=== PATIENT | female | born 1930 | race Caucasian/White ===

== ENCOUNTER 2019-04-21 12:12 | Inpatient (IN) | payer OTHER ==
[~2019-04-21] VITALS: Ht 165.1 cm; Wt 65.3 kg
[~2019-04-21 12:12] MED LIST: ALENDRONATE SOD35 M2 PO; ALENDRONATE SOD70 M1 PO; ALENDRONATE SOD70 M2 PO; ALENDRONATE SOD70 M3 PO; AMLODIPINE BESYL5 M1 PO; AMLODIPINE10 M1 PO; ANTIVERT12.5 MG PO; ARI10 PO; ARICEPT ODT10 MG PO; ARICEPT5 MG PO; ASPI-COR81 M3 PO; ASPIR 8181 MG PO; ATI0.5 PO; ATORVASTATIN CA10 M1 PO; CALCIUM 500500 M2 PO; CALCIUM CITRATE1 TA1 PO; CALCIUM MAG; CHEWABLE ASPIRI81 MG PO; CIPRO500 MG PO; CLOPIDOGREL75 M1 PO; CLOPIDOGREL75 MG PO; COL250 PO; COLACE100 MG PO; CRANBERRY CONC500 MG PO; D3-5050000 IU PO; DEP250 PO; DEPAKOTE ER250 M1 PO; DEPAKOTE250 MG PO; DIO80 PO; DIOVAN80 MG PO; DIPHENOX/ATROPI1 TAB PO; ESOMEPRAZOLE PO; FERROUS SULFAT325 M2 PO; GEODON40 MG PO; GLU500 PO; GOOD SENSE ASPI81 M3 PO; HYDRALAZINE HCL25 MG PO; HYDRALAZINE PO; HYDROCHLOROTH12.5 M2 PO; HYDROCHLOROTH12.5 MG PO; LAC PO; LIPI10 PO; MAG PO; MELOXICAM15 M1 PO; METOPROLOL PO; METOPROLOL TART25 M1 PO; MISOPROST200 MCG PO; MOBIC PO; NAMENDA XR7 MG PO; NAMENDA10 M2 PO; NAMENDA10 M3 PO; NEXIUM PO; NEXIUM40 MG PO; NITROFURANTOIN100 MG PO; NITROSTAT0.4 MG SL; OLANZAPINE2.5 MG PO; OMEPRAZOLE40 M1 PO; ONE DAILY MAXIM1 TAB PO; OYSTER CALCIUM1 TAB PO; OYSTER SHELL C500 M3 PO; OYSTERCAL 500500 MG PO; PREMARIN V0.625 MG/G VG; PROAIR HFA0.09 MG/A1 INH; PROTONIX20 MG PO; SERTRALINE HYD100 MG PO; SERTRALINE100 M1 PO; SERTRALINE100 MG PO; SIMVASTATIN40 MG PO; TRAMADOL50 M1 PO; TRE400 PO; ULT50 PO; VAN1PM IV; VESICARE PO; VESICARE5 M1 PO; VITAMIN D32000 I2 PO; VITD PO; ZES20 PO; ZES5 PO; ZESTRIL20 MG PO; ZINC; ZOC20 PO; ZOL100 PO; ZOS3PM IV; [UNRECOGNIZED DRUG - OTHER] PO
[2019-04-21 12:43] VITALS: Ht 165.1 cm; Wt 65.3 kg
[2019-04-21 13:05] LABS: BASOPHIL % 0.1 % (0-2); PLATELET COUNT 243 x10^3mcL (130-400)
[2019-04-21 13:07] LABS: RED CELL DISTRIBUTION WIDTH 15.6 % (11.5-14.5)
[2019-04-21 13:29] LABS: ALKALINE PHOSPHATASE 49 U/L (46-116); ALT/SGPT 28 U/L (14-59); AST/SGOT 10 U/L (15-37); BILIRUBIN TOTAL 0.2 mg/dL (0.20-1.00); CALCIUM 9.6 mg/dL (8.5-10.1); CARBON DIOXIDE 14.7 mmol/L (21-32); CHLORIDE SERUM 111 mmol/L (98-107); CREATININE SERUM 1.6 mg/dL (0.6-1.0); GLUCOSE SERUM 243 mg/dL (74-106); SODIUM SERUM 138 mmol/L (136-145); TOTAL PROTEIN, SERUM 6.5 g/dL (6.4-8.2)
[2019-04-21 13:30] LABS: T4(THYROXINE) 3.7 ug/dL (4.7-13.3)
[2019-04-21 13:32] LABS: POTASSIUM SERUM 6.8 mmol/L (3.5-5.1)
--- NOTE | 2019-04-21 13:55 | NUR ---
PATIENT PRESENTS TO ED AFTER BEING TOLD THAT SHE HAD ABNORMAL LABS. ARRIVED AT BEDSIDE WITH FAMILY PRESENT. PER FAMILY, PATIENT HAS BEEN LIVING IN [facility]. FAMILY STS PATIENT HAD A CASE OF BED BUGS BITES AND RAYGOZA ARE SEEN THROUGHOUT HER BODY. LEFT SACRAL HAS A SKIN TEAR PRESENT. PILLOW PROVIDED TO LEAVE PRESSURE ON THE SKIN TEAR. PICTURE TAKEN. DR. HUTCHINSON AT BEDSIDE PERFORMING MSE.
[2019-04-21 14:55] LABS: microscopic required? NO
[2019-04-21 15:05] LABS: urine erythrocyte NEGATIVE (NEGATIVE)
[2019-04-21 15:14] LABS: LIPASE 849 IU/L (73-393); MAGNESIUM 1.2 mg/dL (1.8-2.4)
[2019-04-21 15:14] LABS: AMPHETAMINE QUAL UR NONE DETECTED (See below)
[2019-04-21 15:21] LABS: CHOLESTEROL 92 mg/dL (<200); HDL CHOLESTEROL 27 mg/dL (40-60)
[2019-04-21 15:22] LABS: CALCIUM 9.7 mg/dL (8.5-10.1)
--- NOTE | 2019-04-21 15:47 | NUR ---
PATIENT RESTING AT BEDSIDE IN NAD
--- NOTE | 2019-04-21 15:48 | NUR ---
REPORT OFF TO REHANA GUZMAN
[2019-04-21] MEDS ORDERED: METFORMIN500 M1 PO (16:08)
[2019-04-21] MEDS ORDERED: GOOD NEIGH1200 MG/15 PO (16:09)
[2019-04-21] MEDS ORDERED: NITROSTAT0.4 MG SL (16:09)
[2019-04-21] MEDS ORDERED: PERCOCET1 TA5 PO (16:10)
[2019-04-21] MEDS ORDERED: OYSTER SHELL 51 EAC1 PO (16:10)
[2019-04-21] MEDS ORDERED: PLAVIX75 M1 PO (16:10)
--- NOTE | 2019-04-21 16:10 | NUR ---
RECEIVED PT VIA SilentiumERNEY FROM E/D, ACCOMPANIED BY RN, TRANSPORTER, AND PT'S GRANDDAUGHTER, RUBIO RAMOS. PT A/A/O X 2 (PERSON/PLACE), CALM, COOPERATIVE; JENA. ON TELE # 4, HR 91, SR W/ ELEVATED T-WAVES, DENIES CHEST PAIN OR DISCOMFORT AT THIS TIME. NO ACUTE RESPIRATORY DISTRESS NOTED. ABD SOFT, ROUND, NON-TENDER, NORMOACTIVE BOWEL SOUNDS X 4 QUADS, LAST BM 04/21/19, FORMED BLACK STOOL, INCONTINENT OF BOWEL AND BLADDER. GENERALIZED WEAKNESS, USES W/C @ [employer] [place], FALL RISK PROTOCOL IN PLACE. GENERALIZED DRYNESS, RASH/SCABS AND ECCHYMOSIS OF VARYING STAGES, SIZES AND SHAPES; P/U TO RIGHT SIDE OF COCCYX, COVERED W/ OPTIFOAM; LALM IN PLACE FOR SKIN MANAGEMENT. IV SITE RAC 20G, CDI. ORIENTED PT AND GRANDDAUGHTER TO ROOM, BED CONTROLS, CALL LIGHT SYSTEM. SIDE RAILS UP X 2, BED IN LOW POSITION. PT ON CONTACT ISOLATION FOR HX MRSA NARES. WILL ENDORSE TO THOMAS KIMBALL.
[2019-04-21] MEDS ORDERED: SUNMARK PAIN R325 MG PO (16:11)
[2019-04-21] MEDS ORDERED: ALENDRONATE SOD70 M3 PO (16:11)
[2019-04-21] MEDS ORDERED: FERROUS SULFAT325 M2 PO (16:12)
[2019-04-21] MEDS ORDERED: ARICEPT10 MG PO (16:12)
[2019-04-21] MEDS ORDERED: ASPIR LOW81 MG PO (16:12)
[2019-04-21] MEDS ORDERED: FISH OIL1000 MG PO (16:12)
[2019-04-21] MEDS ORDERED: DIT5 (16:12)
[2019-04-21] MEDS ORDERED: LIPI20 PO (16:13)
[2019-04-21] MEDS ORDERED: MELOXICAM7.5 M1 PO (16:13)
[2019-04-21] MEDS ORDERED: HYDRALAZINE HCL25 MG PO (16:13)
[2019-04-21] MEDS ORDERED: MASON NATURAL1000 IU PO (16:13)
[2019-04-21] MEDS ORDERED: GABAPENTIN100 M2 PO (16:13)
[2019-04-21] MEDS ORDERED: XEROFORM PETRO1 EAC4 TP (16:14)
[2019-04-21] MEDS ORDERED: VOLTAREN-XR100 MG (16:14)
[2019-04-21 17:04] VITALS: BP 112/45
--- NOTE | 2019-04-21 17:50 | NUR ---
DR ROY AT BEDSIDE REVIEWING POC WITH PATIENT AND PATIENT FAMILY AT THIS TIME. ALL QUESTIONS AND CONCERNS ADDRESSED. ALL NEEDS ATTENDED TO. WILL CONTINUE TO MONITOR
[2019-04-21 17:57] VITALS: BP 124/48
--- NOTE | 2019-04-21 18:50 | NUR ---
PATIENT RESTING COMFORTABLY IN BED AT THIS TIME. NO APPARENT DISTRESS OR DISCOMFORT NOTED. IV PATENT AND INTACT. FAMILY AT BEDSIDE. ALL QUESTIONS AND CONCERNS ADDRESSED. ALL NEEDS ATTENDED TO. SAFETY PRECAUTIONS MAINTAINED. WILL ENDORSE ALL CARE TO AUDIT CONTROL CLERK NURSE
--- NOTE | 2019-04-21 18:58 | NUR ---
PATIENT HAS SODIUM BICARBONATE DUE AT 1830. BAG NOT IN PYXIS. CALLED DOWN TO PHARMACY, PER PHARMACY THEY WILL BRING UP THE BAG. AWAITING IV FLUID AT THIS TIME. WILL ENDORSE TO HOSPITAL ORDERLY NURSE
--- NOTE | 2019-04-21 19:30 | NUR ---
RECEIVED PT LAYING IN BED, NO ACUTE DISTRESS, DENIES PAIN OR DISCOMFORT, DAUGHTER AT BEDSIDE. AA/OX2, PERSON AND PLACE, SPEECH SLOW AND APPROPRIATE, ABLE TO MAKE NEEDS KNOWN, HX OF DEMENTIA. NSR WITH ELEVATED TO WAVES TO TELE #4, HR 77, DENIES CP OR PRESSURE. PULSES PRESENT AND EQUAL THROUGHOUT, NO EDEMA. BREATHING ON RA, EVEN AND UNLABORED, NO SOB OR DYSPNEA OBSERVED, LUNGS CTA. ABD ROUND AND SOFT WITH ACTIVE BOWEL SOUNDS, NO N/V/D. INCONTINENT OF STOOL AND URINE, WILL PROVIDE PERICARE NEEDED. GENERALIZED WEAKNESS, WHEELCHAIR BOUND AT BASELINE, FALL PRECAUTIONS IN PLACE, TURN Q2H. GENERALIZED ECCHYMOSIS AND RASHES TO BODY WITH TENTING AND DRY SKIN, PENDING SCABIES SKIN SCRAPING RESULTS. BLANCHABLE REDNESS TO COCCYZ, OPTIFOAM IN PLACE, CDI. IV TO RAC IN PLACE, DRY, PATENT, INTACT, S/L, NO PAIN, REDNESS OR SWELLING WHEN FLUSHED WITH NS. COMFORT AND SAFETY MEASURES IN PLACE. BED IN LOWEST POSITION WITH SIDE RAILS UPX2 AND BED ALARM ACTIVATED. CALL LIGHT WITHIN REACH. WILL CONTINUE TO MONITOR
[2019-04-21 20:12] VITALS: BP 134/53
--- NOTE | 2019-04-22 00:50 | NUR ---
SPOKE WITH DR. LOOMIS REGARDING PT'S MG LEVEL 1.2 NEW ORDERS FOR 4 GM MG RIDER IV AND US RENAL WITH BLADDER IN AM. WILL INPUT.
--- NOTE | 2019-04-22 01:30 | NUR ---
NO ACUTE DISTRESS OBSERVED AT THIS TIME, PT LAYING IN BED, BREATHING EVEN AND UNLABORED, EASILY AROUSABLE TO VERBAL STIMULI. PT DENIES DISCOMFORT AT THIS TIME. MG RIDER INITIATED ORDERED, INFUSING WELL. COMFORT AND SAFETY MEASURES IN PLACE. ALL NEEDS ASSESSED AND ATTENDED TO. CALL LIGHT WITHIN REACH. WILL CONTINUE TO MONITOR
--- NOTE | 2019-04-22 02:00 | NUR ---
PT OBSERVED SCRATCHING BUE AND BOTH HANDS. ENCOURAGED PT TO NOT SCRATCH, BUT CONTINUES TO DO SO. PT NEEDS CONSTANT REDIRECTION DUE TO CONFUSION AND FORGETFULNESS.
--- NOTE | 2019-04-22 03:00 | NUR ---
BAG #2 OF ORDERED MG RIDER STARTED, INFUSING WELL. PT CONFUSED AT THIS TIME, STATING SHE WANTS TO GET UP AND GET READY TO GO TO DENOMINATIONAL. PT REORIENTED, REMAINS CONFUSED. BED ALARM ACTIVATED. WILL CONTINUE TO MONITOR
--- NOTE | 2019-04-22 05:29 | NUR ---
PT OBSERVED TO SCRATCHING AND ITCHINESS, PRN ATARAX GIVEN PER EMAR.
--- NOTE | 2019-04-22 06:30 | NUR ---
NO SIGNIFICANT CHANGES TO REPORT, PT COMPLIED WITH NURSING CARE THROUGHOUT THE SHIFT, PERIODS OF CONFUSION AND FORGETFULNESS. NO ACUTE DISTRESS OBSERVED AT THIS TIME. PT LAYING IN BED, BREATHING EVEN AND UNLABORED. COMFORT AND SAFETY MEASURES MAINTAINED. ALL NEEDS ASSESSED AND ATTENDED. BED IN LOWEST POSITION WITH SIDE RAILS UPX2 AND BED ALARM ACTIVATED. CALL LIGHT WITHIN REACH. WILL CONTINUE TO MONITOR AND ENDORSE CARE TO DAY SHIFT NURSE
[2019-04-22 06:38] VITALS: BP 124/44
[2019-04-22 06:49] LABS: PLATELET COUNT 232 x10^3mcL (130-400)
[2019-04-22 07:02] LABS: ALKALINE PHOSPHATASE 46 U/L (46-116); ALT/SGPT 22 U/L (14-59); AST/SGOT 16 U/L (15-37); BILIRUBIN TOTAL 0.2 mg/dL (0.20-1.00); CALCIUM 10.8 mg/dL (8.5-10.1); CARBON DIOXIDE 17.3 mmol/L (21-32); CHLORIDE SERUM 107 mmol/L (98-107); CREATININE SERUM 1.3 mg/dL (0.6-1.0); GLUCOSE SERUM 123 mg/dL (74-106); MAGNESIUM 2.3 mg/dL (1.8-2.4); PHOSPHOROUS 3.3 mg/dL (2.5-4.9); SODIUM SERUM 135 mmol/L (136-145); TOTAL PROTEIN, SERUM 6.2 g/dL (6.4-8.2)
[2019-04-22 07:04] LABS: BASOPHIL % 0 % (0-2); RED CELL DISTRIBUTION WIDTH 14.6 % (11.5-14.5)
--- NOTE | 2019-04-22 07:35 | NUR ---
PATIENT IS AWAKE, RESTING IN BED. NO ACUTE DISTRESS NOTED AT THIS TIME. PATIENT DENIES PAIN. PATIENT IS A/O X2 (PERSON, PLACE), CONFUSED AT TIME. PATIENT ABLE TO MAKE NEEDS KNOWN. TELE MONITOR IN PLACE. GENERALIZED WEAKNESS NOTED, PATIENT ON AIR MATRESS. NA BICARB INFUSING TO RAC AT 100 ML/HR, IV SITE CDI&PATENT, NO S/S OF INFILTRATION. CALL LIGHT WITHIN REACH, BED IN LOW POSITION, WILL CONTINUE TO MONITOR PATIENT.
[2019-04-22 07:51] LABS: ALBUMIN 2.9 g/dL (3.4-5.0); POTASSIUM SERUM 6.9 mmol/L (3.5-5.1)
--- NOTE | 2019-04-22 08:00 | NUR ---
RECEIVED CRITICAL LAB OF K 6.9 FROM LAB, DR ROY PAGED AT THIS TIME. WILL FOLLOW UP WITH DR. ROY AND CONTINUE TO MONITOR PATIENT.
[2019-04-22 08:12] VITALS: BP 138/45
--- NOTE | 2019-04-22 09:08 | NUR ---
US TECH AT BEDSIDE.
--- NOTE | 2019-04-22 09:21 | NUR ---
DR ROY AWARE PATIENTS WBCS INCREASED TO 13.0, LIPASE INCREASED TO 1254, AND K INCREASED TO 6.9. DR ROY GAVE TELEPHONE ORDER/READBACK FOR KAYEXALATE 30GM PO ONCE, AND SODIUM BICARB IV 50MEQ ONCE. WILL CARRY OUT ORDERS AT THIS TIME.
--- NOTE | 2019-04-22 10:35 | NUR ---
SODIUM BICARB 50 MEQ GIVEN OVER 5 MIN AT THIS TIME. ALL NEEDS MET. WILL CONTINUE TO MONITOR PATIENT.
--- NOTE | 2019-04-22 12:25 | NUR ---
OBSERVED PATIENT SCRATCHING BUE & CHEST, ENCOURAGE PATIENT NOT TO DO SO AND APPLIED LOTION ALL OVER FOR COMFORT. PATIENT APPEARS CONFUSED AND NEEDS CONTINOUS REINFORCEMENT. WILL CONTINUE TO MONITOR PATIENT.
[2019-04-22 13:10] VITALS: BP 126/49
--- NOTE | 2019-04-22 13:40 | NUR ---
RECEIVED CRITCAL VALUE OF K: 5.8. DR ROY MADE AWARE K DECREASED. NO NEW ORDERS AT THIS TIME, WILL CONTINUE TO MONITOR PATIENT.
[2019-04-22 16:26] VITALS: BP 124/81
--- NOTE | 2019-04-22 16:55 | NUR ---
PATIENT ARRIVED FROM CT. NA BICARB INFUSING TO RAC AT 100ML/HR, NO S/S OF INFILTRATION. FAMILY AT BEDSIDE. PATIENT DENIES PAIN AT THIS TIME. NO ACUTE DISTRESS NOTED, WILL CONTINUE TO MONITOR. SCDS IN PLACE, BED ALARM ON FOR SAFETY PRECAUTION.
--- NOTE | 2019-04-22 18:40 | NUR ---
PATIENT RESTING IN BED, NO ACUTE DISTRESS NOTED. PATIENT DENIES PAIN. ALL NEEDS MET. NA BICARB INFUSING TO RAC @ 100ML/HR, NO S/S OF INFILTRATION. CONTACT PRECAUTIONS IN PLACE. CALL LIGHT WITHIN REACH, BED IN LOW POSITION, WILL ENDORSE REPORT TO NIGHT RN.
--- NOTE | 2019-04-22 19:30 | NUR ---
RECIEVED PT RESTING IN BED WITH NO ACUTE DISTRESS NOTED AT THE TIME, ASSESSMENT PERFORMED, PT IS A/OX1 TO PERSON, PT DENIES SOB OR PAIN, PT STATES RASH ON BODY IS ITCHY, PT REORIENTED, SAFETY PRECAUTIONS IN PLACE, WILL CONTINUE TO MONITOR
--- NOTE | 2019-04-22 21:27 | NUR ---
PT COMPLAINS OF ITCHINESS, ADMINISTERED ATARAXPRN FOR ITCHINESS
--- NOTE | 2019-04-22 21:28 | NUR ---
CLEANED PT, APPLIED ELIMITE CREAM TO ENTIRE BODY AND REPLACED ALL LINENS. SAFETY PRECAUTIONS IN PLACE, WILL CONTINUE TO MONITOR
--- NOTE | 2019-04-22 21:30 | NUR ---
REMOVED OPTIFOAM ON COCCYX WOUND, CLEANSED WITH WOUND CLEANSER AND REPLACED WITH NEW OPTIFOAM
[2019-04-22 23:08] VITALS: BP 137/47
--- NOTE | 2019-04-23 00:50 | NUR ---
PT RESTING IN BED WITH EYES CLOSED, PT EASILY AROUSABLE TO VERBAL STIMULI, PT DENIES PAIN OR SOB, SAFETY PRECAUTIONS IN PLACE, WILL CONTINUE TO MONITOR
--- NOTE | 2019-04-23 02:45 | NUR ---
PT RETING IN BED WITH EYES CLOSED NO ACUTE DISTRESS NOTED AT THIS TIME, RESPIRATIONS EVEN AND UNLABORED, WILL CONTINUE TO MONITOR
--- NOTE | 2019-04-23 05:30 | NUR ---
CHANGED PT AND CHANGED OPTIFOAM DRESSING, SAFETY PRECAUTIONS IN PLACE, WILL CONTINUE TO MONITOR
[2019-04-23 05:40] VITALS: BP 131/52
--- NOTE | 2019-04-23 06:00 | NUR ---
PT RESTED THROUGH THE NIGHT, PT HAD EPISDOE OF ITCHINESS THAT PERSISTED, PT RESTED COMFORTABLY WITH EYES CLOSED THROUGH THE NIGHT, PT DENIED SOB OR PAIN, WILL CONTINUE TO MONITOR AND ENDORSE CARE TO ONCOMING RN
[2019-04-23 06:41] LABS: ALKALINE PHOSPHATASE 53 U/L (46-116); ALT/SGPT 16 U/L (14-59); AST/SGOT 15 U/L (15-37); BILIRUBIN TOTAL 0.38 mg/dL (0.20-1.00); CARBON DIOXIDE 18.7 mmol/L (21-32); CHLORIDE SERUM 110 mmol/L (98-107); CREATININE SERUM 1.2 mg/dL (0.6-1.0); GLUCOSE SERUM 114 mg/dL (74-106); MAGNESIUM 1.4 mg/dL (1.8-2.4); PHOSPHOROUS 3.5 mg/dL (2.5-4.9); POTASSIUM SERUM 5.3 mmol/L (3.5-5.1); SODIUM SERUM 139 mmol/L (136-145)
[2019-04-23 06:42] LABS: ALBUMIN 2.7 g/dL (3.4-5.0); TOTAL PROTEIN, SERUM 5.9 g/dL (6.4-8.2)
[2019-04-23 06:45] LABS: IRON 56 ug/dL (50-170)
[2019-04-23 06:47] LABS: TOTAL IRON BINDING CAPACITY 201 ug/dL (250-450)
[2019-04-23 06:48] LABS: BASOPHIL % 0.2 % (0-2); PLATELET COUNT 214 x10^3mcL (130-400); RED CELL DISTRIBUTION WIDTH 14.5 % (11.5-14.5)
--- NOTE | 2019-04-23 07:30 | NUR ---
RECEIVED BEDSIDE REPORT. PATIENT SITTING UP IN BED A/O X1, REORIENTED TO PLACE AND TIME. TELE # [address], DENIES CHEST PAIN. BREATHING EVEN AND UNLABBORED, NO DISTRESS NOTED. DENIES ANY PAIN. PATIENT WITH GENERALIZED BODY RASH AND IS ITCHY ENCOURAGED PATIENT NOT TO SCRATCH, WILL NOTIFY MD. PATIENT IS ON LOW AIR LOSS MATTRESS. IV TO LW INTACT INFUSING IVF WELL FREE FROM REDNESS AND INFILTRATION. CONTACT ISOLATION PRECAUTIONS MAINTAINED. PATIENT IS CALM WITH CARE. SAFETY PRECAUTIONS MAINTAINED. WILL MONITOR.
--- NOTE | 2019-04-23 09:18 | NUR ---
PATIENT SITTING UP IN BED, NOTED PATIENT SCRATCHING CHEST AND BUE. MEDICATED WITH BENADRYL PO (SEE eMAR) PER DR. ROUSE ORDERS. ALL NEEDS ATTENDED TO, SAFETY PRECAUTIONS MAINTAINED. WILL MONITOR.
[2019-04-23 09:20] VITALS: BP 147/60
--- NOTE | 2019-04-23 10:00 | NUR ---
PATIENT SITTING UP IN BED, NO DISTRESS NOTED. SON AMY AT BEDSIDE. ALL QUESTIONS AND CONCERNS ADDRESSED. ALL NEEDS ATTENDED TO, SAFETY AND CONTACT PRECAUTIONS MAINTAINED. WILL MONITOR.
--- NOTE | 2019-04-23 10:28 | NUR ---
PAGED DR. ROUSE AT THIS TIME REGARDING TREATMENT ORDERS PATIENT IS POSITIVE FOR MRSA NARES. WILL WAIT FOR CALL BACK.
--- NOTE | 2019-04-23 11:10 | NUR ---
PATIENT GIVEN FULL HEAD TO TOE BED BATH, AND LINEN CHANGE. OPTIFOAM TO SACRAL- COCCYGEAL CHANGED AT THIS TIME. PATIENT TOLERATED WELL, REPOSITIONED AND MADE COMFORTABLE. ALL NEEDS ATTENDED, SAFETY PRECAUTIONS MAINTAINED. WILL MONITOR.
[2019-04-23 12:44] VITALS: BP 125/55
--- NOTE | 2019-04-23 13:35 | NUR ---
PATIENT RESTING IN BED COMFORTABLY WITH EYES CLOSED, BREATHING EVEN AND UNLABBORED NO DISTRESS NOTED. SAFETY PRECAUTIONS MAINTAINED. WILL MONITOR.
--- NOTE | 2019-04-23 15:00 | NUR ---
RECEIVED CALL FROM [facility] STATING PATIENTS HR 130. WENT TO ASSESS PATIENT, PATIENT SITTING UP IN BED ATTEMPTING TO REMOVE LINEN AND GOWN, HR IN 80'S, NO DISTRESS NOTED. PATIENT NOW SITTING UP IN BED WATCHING TELEVISION, CALM, NO LONGER REMOVING GOWN/LINEN. ALL NEEDS ATTENDED TO, SAFETY PRECAUTIONS MAINTAINED. WILL MONITOR.
--- NOTE | 2019-04-23 15:40 | NUR ---
IV TO LW INFILTRATED, REMOVED CATH INTACT. NEW IV PLACED TO RAC, 22 GAUGE BY CHARGE NURSE, GOOD BLOOD RETURN AND FLUSHED WELL WITH 10 ML NS. PATIENT TOLERATED WELL. IVF RESUMED. ALL NEEDS ATTENDED TO, SAFETY PRECAUTIONS MAINTAINED. WILL MONITOR.
--- NOTE | 2019-04-23 16:00 | NUR ---
DR. ROUSE PAGED AT THIS TIME.
--- NOTE | 2019-04-23 16:07 | NUR ---
RECEIVED CALL BACK AND SPOKE WITH DR. ROUSE AND INFORMED HIM PATIENT POSITIVE FOR MRSA NARES AND IF HE WANTED TO START TREATMENT FOR MRSA NARES- PER DR. ROUSE NO TREATMENT, PATIENT IS ALREADY ON CONTACT ISOLATION. ALSO INFORMED DR. ROUSE LAB IS STILL PENDING TO R/O SCABIES. ALL QUESTIONS AND CONCERNS ADDRESSED. WILL MONITOR.
[2019-04-23 17:42] VITALS: BP 135/55
--- NOTE | 2019-04-23 18:35 | NUR ---
PATIENT SITTING UP IN BED EATING DINNER, TOLERATING WELL, BEING ASSISTED BY TAB CARD PRESS OPERATOR. NO ACUTE CHANGES NOTED DURING SHIFT. IV TO RAC INTACT INFUSING IVF WELL, FREE FROM REDNESS AND INFILTRATION. CONTACT ISOLATION PRECAUTIONS MAINTAINED. ALL NEEDS ATTENDED TO, SAFETY PRECAUTIONS MAINTAINED. WILL ENDORSE CARE TO ONCOMING NURSE.
--- NOTE | 2019-04-23 19:15 | NUR ---
REPORT GIVEN TO ROMAIN GUZMAN, ALL QUESTIONS AND CONCERNS ADDRESSED. ALL CARES ENDORSED.
--- NOTE | 2019-04-23 19:35 | NUR ---
RECEIVED PATIENT IN BED SLEEPING WITH NO SIGN OF DISTRESS, BREATHING EASY AND NONLABOR SATTING AT 98% RA. TELE#4,SR ON MONITOR. ABDOMEN SOFT AND NONTENDER WITH ACTIVE BS. PATIENT ON AIR MATTRESS, USES WHEECHAIR AT FACILITY. IV TO RAC INTACT AND INFUSING WELL. WILL CONTINUE TO MONITOR. KEPT ON ISOLATION PRECAUTION. CALL LIGHT WITHIN REACH.
[2019-04-23 19:42] VITALS: BP 144/47
--- NOTE | 2019-04-23 21:51 | NUR ---
HAD BM X1 SOFT IN LARGE AMOUNT, PERIANAL CARE GIVEN. WILL CONTINUE TO MONITOR.
--- NOTE | 2019-04-24 05:10 | NUR ---
CHECKED AT INTERVALS FOR NEEDS AND COMFORT. NO SIGNIFICANT CHANGES IN CONDITION NOTED. KEPT ON ISOLATION PRECAUTION.
[2019-04-24 06:30] LABS: ALKALINE PHOSPHATASE 58 U/L (46-116); ALT/SGPT 19 U/L (14-59); AST/SGOT 18 U/L (15-37); CALCIUM 9.3 mg/dL (8.5-10.1); CARBON DIOXIDE 19.4 mmol/L (21-32); CHLORIDE SERUM 108 mmol/L (98-107); CREATININE SERUM 1.1 mg/dL (0.6-1.0); GLUCOSE SERUM 118 mg/dL (74-106); LIPASE 157 IU/L (73-393); MAGNESIUM 1.5 mg/dL (1.8-2.4); PHOSPHOROUS 3.3 mg/dL (2.5-4.9); SODIUM SERUM 139 mmol/L (136-145); TOTAL PROTEIN, SERUM 6.3 g/dL (6.4-8.2)
[2019-04-24 06:38] LABS: BASOPHIL % 0.2 % (0-2); PLATELET COUNT 233 x10^3mcL (130-400); RED CELL DISTRIBUTION WIDTH 14.5 % (11.5-14.5)
[2019-04-24 06:51] VITALS: BP 131/50
--- NOTE | 2019-04-24 07:10 | NUR ---
RECEIVED PT FROM LEGISLATIVE DIRECTOR RN. A/OX1. PT KNOWS SELF, CONFUSED AND FORGETFUL. TELE#4. DENIES CHEST PAIN/PRESSURE. RESPIRATIONS EQUAL AND UNLABORED ON RA. DENIES SOB. PT INCONTINENT, HAD BM, CHANGED. AIR MATTRESS IN PLACE, PT ABLE TO ASSIST WITH TURNING, WILL ASSIST TURING Q2H. PT C/O PAIN TO RT LEG 6/10 THROBBING. ELEVATED HEELS ON PILLOW. WOUND TO RT MEDICAL COCYX COVERED WITH OPTIFOAM DRESSING, CDI. IV SALINE LOCKED TO RAC. NO REDNESS OR SWELLING NOTED. WILL CONTINUE TO MONITOR. CALL LIGHT IN REACH. BED IN LOWEST POSITION.
[2019-04-24 08:30] VITALS: BP 135/46
--- NOTE | 2019-04-24 10:59 | NUR ---
PT SITTING UP IN BED. NO ACUTE RESP DISTRESS NOTED ON RA. PT DENIES ANY PAIN AT THIS TIME. FAMILY AT BEDSIDE. GIVEN PO MEDS. TOLERATED WELL. IV FLUSHED WELL TO RFA. NO REDNESS OR SWELLING NOTED. IV MAGNESIUM INFUSING ORDERED. PT REPOSITIONED ON LEFT SIDE. WIPED PT DOWN WITH HIBICLENS. WILL CONTINUE TO MONITOR. CALL LIGHT IN REACH. BED IN LOWEST POSITION.
--- NOTE | 2019-04-24 12:23 | NUR ---
PT SITTING UP IN BED. DROWSY BUT AROUSABLE TO VOICE. NO ACUTE RESP DISTRESS NOTED ON RA. IV SALINE LOCKED TO RAC. NO REDNESS OR SWELLING NOTED. APPLIED NEW OPTIFOAM DRESSING TO COCCYX. PT CHANGED AND REPOSITIONED ON RT SIDE. GIVEN PO MEDS. TOLERATED WELL. WILL CONTINUE TO MONITOR. CALL LIGHT IN REACH. BED IN LOWEST POSITION.
--- NOTE | 2019-04-24 12:30 | NUR ---
PT TAKEN OFF FLOOR FOR CT OF CHEST VIA BED
[2019-04-24 13:47] VITALS: BP 125/48
--- NOTE | 2019-04-24 14:11 | NUR ---
PT SITTING UP IN BED. NO ACUTE RESP DISTRESS NOTED ON RA. PT CHANGED AND REPOSITIONED SUPINE SITTING UP IN BED. PT DENIES ANY PAIN AT THIS TIME. IV SALINE LOCKED TO RAC. NO REDNESS OR SWELLING NOTED. WILL CONTINUE TO MONITOR. CALL LIGHT IN REACH. BED IN LOWEST POSITION.
--- NOTE | 2019-04-24 14:38 | NUR ---
Initial Nutrition Assessment: /B YESSICA SMITH IA HR Dx: Hyperkalemia PMHx: HTN, DM type 2, hyperlipidemia, dementia, Alzheimer disease, CAD PSHx: none Labs: BG 118H, BUN 20H, CREAT 1.1H, MG 1.5L, A1C 7.5H, WBC 12.8H Meds: Atarax, calcium carbonate, D50%, Dulcolax, ferrous sulfate, humulin, Lipitor, vitamin D, synthyroid Diet: Clear liquid PO Intake: (04/23) dinner 100%, lunch 75%, breakfast 50% Ht: 165.1 cm (65") Wt: 65 kg (143#) BMI: 24 kg/m2 Bed scale: 142.9# IBW: 125# (57 kg) %IBW: 114 UBW: 162# Age: 88/F Food Allergies: NKFA Skin: generalized body rash, erythema, open wound to medial coccyx Pablo: 15 Edema: none GI: incontinent of bowel, bladder Last BM: 04/24 Trigger: poor PO>3d Per H&P, Pt is a 88/F with PMH of dementia was brought in from [facility], brought to hospital because of abnormal blood test. RDN Visit (04/24): Patient was awake but appeared confused. Patient's family member was at bedside. Patient said that she drank some juice this morning. Patient is on clear liquid diet since 04/21. S[place]ke with THOMAS Zaman, she said that Dr. Davies wanted to keep the patient on CLD due to previously elevated lipase and that Dr. Romero was covering him for the weekend. Paged Dr. Romero, waiting for call back. Spoke with dry pan chargerTHOMAS Mejias, she said that Dr. Davies is covering for the patient today. Dr. Davies said that patient can be advanced to regular diet as tolerated. Problem with: N/V/D/C: no Problems with: Chewing/Swallowing: none Current appetite: fair Recent wt change: lost 19# x 2 months %wt change: 11 Vitamin/Supplement use: none Special diet at home: regular Physical activity: uses wheelchair at baseline Nutrition education given: Patient appeared slightly confused. Nutrition education was not possible. Patient's family member did not have any diet/nutrition related question. Food-drug interactions: lipitor- avoid grapefruit Education given: no Estimated Nutritional Needs Based on body weight 65 kg Energy: 1587-9647 kcal/d (25-30 kcal/kg) Protein: 65-78 g/d (1.0-1.2 g/kg) - geriatric maintenance Fluid: 8301-6641 ml/d (1 ml/kcal) or per doctor Nutrition Diagnosis 1. Inadequate oral intake related to restrictive diet order 2/2 medical condition as evidenced by patient on clear liquid diet since 04/21. Intervention 1. Recommend CCHO diet. Monitor/Evaluate Goal: PO intake at least 75% of estimated needs Monitor: PO intake, Labs, GI function F/U in 2-3 days as high risk 04/26-
--- NOTE | 2019-04-24 14:38 | NUR ---
1. Recommend CCHO diet.
--- NOTE | 2019-04-24 15:32 | NUR ---
PT HAS HAS 3 WATERY STOOLS SINCE 0700. UTILIZED MANDATORY SUPPLEMENTARY DOCUMENTATION FOR C. DIFFICILE TEST REQUISTION. PER TOOL PT HAS BEEN ON DUCOLAX LAXATIVE PER TOOL NOTIFY PROVIDER AND STOP LAXATIVE. CALLED DR. OLIVEIRA REGARDING RESULTS, NO ANSWER AWAITING CALL BACK, WILL CALL AGAIN.
--- NOTE | 2019-04-24 17:02 | NUR ---
PT SITTING UP IN BED. PT CALLING NURSE FOR HELP. FAMILY AT BEDSIDE. WHEN ASKED PT STATES "I DONT KNOW WHAT I NEED" GIVEN PO MEDS. TOLERATED WELL. BLOOD SUGAR CHECKED WAS 283. GIVEN 9 UNITS OF REGULAR INSULIN PER SLIDING SCALE. REPOSITIONED PT ON LEFT SIDE. REAPPLIED SCDS. WILL CONTINUE TO MONITOR. CALL LIGHT IN REACH. BED IN LOWEST POSITION.
[2019-04-24 17:28] VITALS: BP 135/52
--- NOTE | 2019-04-24 18:45 | NUR ---
PT SITTING UP IN BED. DAUGHTER AT BEDSIDE. NO ACUTE RESP DISTRESS NOTED ON RA. PT DENIES ANY PAIN AT THIS TIME. PT REPOSITIONED ON LEFT SIDE. IV TO RAC SALINE LOCKED. NO REDNESS OR SWELLING NOTED. SCDS IN PLACE. TELE#4. WILL ENDORSE TO NITROGLYCERIN NEUTRALIZER RN. CALL LIGHT IN REACH. BED IN LOWEST POSITION.
--- NOTE | 2019-04-24 18:51 | NUR ---
SPOKE WITH DR. OLIVEIRA REGARDING PT HAVING WATERY STOOLS X3 TODAY PER DR. OLIVEIRA D/C DUCOLAX. PER DR. OLIVEIRA ADVANCE PT DIET TO [facility]. CONFIRMED ORDERED TORB.
--- NOTE | 2019-04-24 20:00 | NUR ---
RECEIVED PT IN BED, ALERT AND ORIENTED X 1 TO SELF, CONFUSED AND FORGETFUL, [place], DENIES HEADACHE OR DIZZINESS, BREATHING EVEN AND UNLABORED, LUNG SOUNDS CLEAR, ON ROOM AIR WITH NO RESP DISTRESS NOTED, ON TELE#4 NSR, DENIES CHEST PAIN, PULSES PALPABLE, NO EDEMA NOTED, GENERALIZED WEAKNESS, WC HODGSON AT HOME, AIR MATTRESS, REPOSITION PT Q2HRS, SL TO RAC, GENERALIZED BODY RASH AND ECCHYMOSIS, ABD SOFT AND FLAT WITH ACTIVE BS, NO BM AT THIS TIME, INCONTINET OF BM AND URINE, SMALL OPEN WOUND TO SACRAL AND COCCYX AREA, OPTIFORM IN PLACE, REMAINS ON CONTACT ISOLATION, FALL PRECAUTION IN PLACE, BED ALARM ON, NO DISTRESS NOTED, WILL KEEP TO MONITOR.
[2019-04-24 20:23] VITALS: BP 137/46
--- NOTE | 2019-04-24 22:40 | NUR ---
PT'S HEART RATE WENT UP TO 140'S, WENT TO THE ROOM AND CHECK ON PT, NOTED PT IS SCRATCHING HERSELF ALL OVER AND C/O OF ITCHING, CALL DR OLIVEIRA AND NEW ORDER RECEIVED FOR BENADRYL 25MG IVP Q4HRS PRN AND OKAY TO GIVE X 1 NOW.
--- NOTE | 2019-04-25 04:25 | NUR ---
TOTAL BED BATH GIVEN, ALL LINENS, GOWN AND BLANKETS CHANGED, BENADRYL 25MG VIA IVP GIVEN DUE TO PT STILL C/O OF ITCHING, NO DISTRESS NOTED, WILL KEEP TO MONITOR.
[2019-04-25 05:56] VITALS: BP 123/51
--- NOTE | 2019-04-25 05:59 | NUR ---
PT AWAKE AND RESTING IN BED, AWAKE MOST OF NIGHT, MEDICATED WITH TWO TIMES BENADRYL IVP AND ONE TIME BENADRYL PO FOR ITCHNESS WITH MILD RELIEF, PT STILL SCRATCHES HERSELF, REPOSITIONED PT Q2HRS, ON AIR MATTRESS, NO DISTRESS NOTED, WILL KEEP TO MONITOR.
[2019-04-25 06:22] LABS: BASOPHIL % 0.1 % (0-2); PLATELET COUNT 227 x10^3mcL (130-400); RED CELL DISTRIBUTION WIDTH 14.5 % (11.5-14.5)
[2019-04-25 06:55] LABS: CALCIUM 9.3 mg/dL (8.5-10.1); CARBON DIOXIDE 18.3 mmol/L (21-32); CHLORIDE SERUM 106 mmol/L (98-107); CREATININE SERUM 1.4 mg/dL (0.6-1.0); GLUCOSE SERUM 148 mg/dL (74-106); SODIUM SERUM 138 mmol/L (136-145)
--- NOTE | 2019-04-25 07:21 | NUR ---
BEDSIDE HANDOFF REPORT GIVEN TO YAMINI, ALL QUESTIONS ANSWERED AND CONCERNS ADDRESSED.
--- NOTE | 2019-04-25 07:55 | NUR ---
RECEIVED PT AAOX1. FORGETFUL AT TIMES. PERRL. NO FACIAL DROOP NOTED. SPEECH IS SLOW BUT CLEAR AND APPROPRIATE. DENIES HEADACHE. EENT FREE OF DISCHARGE. ON ROOM AIR. RESPS ARE EVEN AND UNLABORED. SYMMETRICAL CHEST WALL EXPANSION NOTED. NO ADVENTITIOUS LUNG SOUNDS AUSCULTATED. NO S/S OF ACUTE DISTRESS NOTED. ABD IS SYMM, ROUNDED, AND NONTENDER. DENIES N/V. PT IS INCONTINENT OF URINE. SKIN IS WARM/DRY TO TOUCH, PALE IN COLOR. PIV TO R FA INTACT, PORT PATENT, SALINE-LOCKED, DRESSING CDI. PT HAS RASHES ALL THROUGHOUT BODY AND SCATTERED ECCHYMOSIS. WOUND NOTED TO MEDIAL ASPECT OF COCCYX WITH OPTIFOAM IN PLACE.
[2019-04-25 10:35] VITALS: BP 119/51
--- NOTE | 2019-04-25 11:45 | NUR ---
PT SCRATCHING AND ITCHING ALL OVER BODY. BENADRY 25MG IVP GIVEN PER EMAR. WILL CONT TO MONITOR.
[2019-04-25 13:49] VITALS: BP 151/54
--- NOTE | 2019-04-25 14:04 | NUR ---
PT SITTING UP AND EATING IN BED. NO S/S OF ASPIRATION. TOLERATING FOOD WELL. FAMILY AT BEDSIDE. REMAINS ON ROOM AIR. BREATHING E/U. SYMMETRICAL CHEST WALL EXPANSION. IV TO R FA INTACT, PORT PATENT, SALINE-LOCKED, DRESSING CDI. X3 SIDE RAILS UP, BED IN LOWEST POSITION, CALL LIGHT WITHIN REACH.
[2019-04-25 17:12] VITALS: BP 142/55
--- NOTE | 2019-04-25 19:12 | NUR ---
RECEIVED PT IN BED, ALERT AND ORIENTED X 1 TO SELF, CONFUSED AND FORGETFUL, [place], DENIES HEADACHE OR DIZZINESS, BREATHING EVEN AND UNLABORED, LUNG SOUNDS CLEAR, ON ROOM AIR WITH NO RESP DISTRESS NOTED, ON TELE#4 NSR, DENIES CHEST PAIN, PULSES PALPABLE, NO EDEMA NOTED, GENERALIZED WEAKNESS, WC HODGSON AT HOME, AIR MATTRESS, REPOSITION PT Q2HRS, SL TO RAC, GENERALIZED BODY RASH AND ECCHYMOSIS, ABD SOFT AND FLAT WITH ACTIVE BS, NO BM AT THIS TIME, INCONTINET OF BM AND URINE, SMALL OPEN WOUND TO SACRAL AND COCCYX AREA, OPTIFORM IN PLACE, REMAINS ON CONTACT ISOLATION, FALL PRECAUTION IN PLACE, BED ALARM ON, NO DISTRESS NOTED, WILL KEEP TO MONITOR.
[2019-04-25 21:00] VITALS: BP 144/53
--- NOTE | 2019-04-25 22:40 | NUR ---
PT IS VERY RESTLESS AND AGITATED IN BED, KEEP PULLING TELE MONITOR OFF, MADE DR OLIVEIRA AWARE, NEW ORDER RECEIVED FROM DR OLIVEIRA, ATIVAN 1MG VIA IVP Q4 HRS PRN, ORDER ENTERED, ATIVAN 1MG VIA IVP ADMINISTERED.
--- NOTE | 2019-04-25 23:17 | NUR ---
ROUNDS MADE, PT ASLEEP BUT EASILY AROUSABLE, BREATHING EVEN AND UNLABORED ON ROOM AIR, NO DISTRESS NOTED, WILL KEEP TO MONITOR.
--- NOTE | 2019-04-26 05:12 | NUR ---
PT ASLEEP BUT EASILY AROUSABLE, SLEPT MOST OF NIGHT AFTER MEDICATED WITH ATIVAN 1MG VIA IVP, RESTLESS AND EASILY AGITATED WHILE AWAKE, MORNING BLOOD SUGAR-138 MG/DL WITH NO RISS, REPOSITION PT Q2HRS, ON AIR MATTRESS, IVF INFUSING WELL WITH 1/2NS+SODIUM BICARBONATE @ 75 ML/HR. WANG VIA GRAVITY DRAINING YELLOW URINE, NO DISTRESS NOTED, WILL KEEP TO MONITOR.
[2019-04-26 06:06] VITALS: BP 96/70
[2019-04-26 06:22] LABS: BASOPHIL % 0.1 % (0-2); PLATELET COUNT 186 x10^3mcL (130-400)
[2019-04-26 07:02] LABS: RED CELL DISTRIBUTION WIDTH 14.6 % (11.5-14.5)
[2019-04-26 07:10] LABS: ALBUMIN 2.7 g/dL (3.4-5.0); ALKALINE PHOSPHATASE 84 U/L (46-116); ALT/SGPT 44 U/L (14-59); AST/SGOT 52 U/L (15-37); BILIRUBIN TOTAL 0.35 mg/dL (0.20-1.00); CALCIUM 9.2 mg/dL (8.5-10.1); CARBON DIOXIDE 19.7 mmol/L (21-32); CHLORIDE SERUM 108 mmol/L (98-107); CREATININE SERUM 1.3 mg/dL (0.6-1.0); GLUCOSE SERUM 127 mg/dL (74-106); MAGNESIUM 1.6 mg/dL (1.8-2.4); PHOSPHOROUS 3.1 mg/dL (2.5-4.9); POTASSIUM SERUM 4.6 mmol/L (3.5-5.1); SODIUM SERUM 139 mmol/L (136-145); TOTAL PROTEIN, SERUM 5.8 g/dL (6.4-8.2)
--- NOTE | 2019-04-26 07:10 | NUR ---
REICEVED PT RESTING IN BED WITH NO C/O PAIN, DISTRESS, OR SOB. A/O X1. TELE#4 CONNECTED TO PT. WANG CATHETER INTACT AND DRAINING. BODY RASH AND ECCYMOSIS NOTED AND DOCUMENTED BY PREVIOUS SHIFT. WOUND TO COCCYX NOTED WITH OPTIFOAM APPLIED. SALINE LOCK TO RFA INTACT AND PATENT WITH 1/2 NS WITH NS BCARB X5 BAGS, 1ST BAG CURRENTLY RUNNING AT 75/HR. SAFETY PRECAUTIONS IN PLACE, CALL LIGHT WITHIN REACH, WILL MONITOR.
--- NOTE | 2019-04-26 08:43 | NUR ---
PT DAUGHTER REQUESTING PT TO HAVE ADIVAN FOR S/S OF AGGITATION AND ANXIETY, MEDICATED WITH ATIVAN PER EMAR, WILL REAASSESS.
[2019-04-26 09:24] VITALS: BP 122/59
--- NOTE | 2019-04-26 09:45 | NUR ---
DR OLIVEIRA AT BEDSIDE DISCUSSING TREATMENT AND POC WITH PT DAUGHTER, DAUGHTER VEBALIZES UNDERSTANDING. BRENDA IS TO DISCHARGE TOMORROW TO SNF AND HAVE THEM F/U WITH DERMATOLOGY.
[2019-04-26 12:33] VITALS: BP 104/62
--- NOTE | 2019-04-26 12:48 | NUR ---
PT RESTING IN BED WITH DAUGHTER AT BEDSIDE. ALL NEEDS ATTENDED TO AT THIS TIME. SAFETY PRECAUTIONS IN PLACE, CALL LIGHT WITHIN REACH, WILL CONTINUE TO MONITOR.
--- NOTE | 2019-04-26 14:46 | NUR ---
DR. OLIVEIRA MADE AWARE PATIENT WILL BE TRANSFERED BACK TO [facility] TOMORROW MORNING WITH ESTIMATED BEHAVIORAL ASSISTANT TIME AROUND 0900. PER DR. OLIVEIRA WILL PLACE D/C ORDERS PRIOR TO BEHAVIORAL ASSISTANT TIME.
--- NOTE | 2019-04-26 15:23 | NUR ---
PT RESTING IN BED WITH NO DISTRESS NOTED. SAFETY PRECAUTIONS IN PLACE, CALL LIGHT WITHIN REACH, WILL CONT TO MONITOR.
--- NOTE | 2019-04-26 16:17 | NUR ---
PT FOUND TRYING TO WIGGLE OUT OF BED AND APPEARS TO BE AGITATED, MEDICATED WITH ATIVAN PER EMAR, WILL REASSESS.
--- NOTE | 2019-04-26 17:00 | NUR ---
CALLED DR. OLIVEIRA AND INFORMED HIM PATIENT IS SCHEDULED TO BE PICKED UP TOMORROW 04/27/19 AT 0800 TO BE TRANSFERED TO [facility]. RECEIVED TELEPHONE ORDERS FROM DR. OLIVEIRA TO PLACE DISCHARGE ORDERS, H/L IV, REMOVE WANG CATH AND MAKE SURE PATIENT CAN PEE, AND TO CONTINUE ALL MEDICATION FROM LONG TERM. ORDERS REPEATED AND CONFIRMED. WILL CARRY OUT ORDERS AND NOTIFY PRIMAR RN.
[2019-04-26 17:45] VITALS: BP 165/67
--- NOTE | 2019-04-26 18:05 | NUR ---
PT STABLE AT THIS TIME, RESTING IN BED WITH NO S/S OF PAIN, DISTRESS, OR SOB. TELE #4 CONNECTED TO PT. TOLERATED ALL CARES WELL. VS WNL. IV SITE INTACT AND PATENT WITH NO REDNESS OR INFLAMMATION. 1/2 NS WITH SODIUM BICARBONATE RUNNING AT 70ML/HR. WANG CATHETER INTACT AND DRAINING. SAFETY PRECAUTIONS IN PLACE, CALL LIGHT WITHIN REACH, FAMILY AT BEDSIDE, WILL ENDORSE CARE TO NIGHT NURSE.
--- NOTE | 2019-04-26 19:15 | NUR ---
RECEIVED PT FROM THE DAY SHIFT RN. PT IS CURRENTLY RESTING IN BED WITH EYES CLOSED. NO SIGNS OR SYMPTOMS OF CHEST PAIN OR SHORTNESS OF BREATH. THERE ARE NO USE OF ACCESSORY MUSCLES OR LABORED BREATHING ON ASSESSMENT. 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 TELE #[address]. PT CURRENTLY HAS A WANG IN PLACE. AWARE OF ORDER FOR DISCHARGE. WILL ATTEMPT TO DISCHARGE WANG. GENERALIZED BODY RASH NOTED ACCOMPANIED ECCHYMOSIS. THERE IS AN RFA IV THAT IS CLEAN DRY AND INTACT WITH SODIUM BICARB RUNNING AT 75ML/HR. SAFETY MEASURES ARE IN PLACE. BED IS IN THE LOWEST POSITION. CALL LIGHT IS WITHIN REACH. WILL CONTINUE TO MONITOR PT.
[2019-04-26 21:33] VITALS: BP 167/83
--- NOTE | 2019-04-26 22:44 | NUR ---
PT TOLERATED ALL MEDICATIONS GIVE. PT IS DROWSY AT THIS TIME CURRENTLY RESTING IN BED. BREATHING IS EVEN AND UNLABORED.
[2019-04-27 01:12] VITALS: BP 167/83
--- NOTE | 2019-04-27 03:11 | NUR ---
DC'S PT WANG. PT TOLERATED WELL. EMPTIED 1100 ML OF YELLOW URINE FROM WANG BAG. CATHETER TIP INTACT.
--- NOTE | 2019-04-27 05:07 | NUR ---
PT CURRENTLY RESTING IN BED, NO DISTRESS NOTED AT THIS TIME. NO USE OF ACCESSORY MUSCLES OR LABORED BREATHING.
[2019-04-27 05:40] VITALS: BP 150/67
--- NOTE | 2019-04-27 06:39 | NUR ---
SYNTHROID 0.025 MG NOT AVAILABLE IN ANY PYXIS. CALLED PHARMACY AND TOLD THEY WILL CHECK ON ORDER.
[2019-04-27 06:40] LABS: BASOPHIL % 0.1 % (0-2); PLATELET COUNT 204 x10^3mcL (130-400); RED CELL DISTRIBUTION WIDTH 14.1 % (11.5-14.5)
[2019-04-27 06:47] LABS: CALCIUM 9.6 mg/dL (8.5-10.1); CARBON DIOXIDE 19.8 mmol/L (21-32); CHLORIDE SERUM 106 mmol/L (98-107); CREATININE SERUM 1.1 mg/dL (0.6-1.0); GLUCOSE SERUM 107 mg/dL (74-106); POTASSIUM SERUM 4.4 mmol/L (3.5-5.1); SODIUM SERUM 139 mmol/L (136-145)
--- NOTE | 2019-04-27 07:30 | NUR ---
RECEIVED PATIENT DROWSY, AROUSABLE. ORIENTED TO PERSON ONLY. TELE#4 NSR. HR = 75. NO RESP DISTRESS ON RA. ON AIR MATRESS. OPENED WOUND TO BUTTOCK NOTED, SCANT SEROSANGUINOUS DRAINAGE. OPTIFOAM DRSG INTACT. B/B INCONT. IV TO RFA INFFILTRATED. IV D/C'D. RFA EDEMA 1+ DUE TO IV INFILTRATION. ELEVATED R ARM. SKIN RASHES ALL OVER BODY, TERI. C/O ITCHING. CONTACT ISOLATION OF MRSA (+) NARES. SON AND DAUGHTER IN ROOM.
--- NOTE | 2019-04-27 09:04 | NUR ---
PATIENT D/C TO [facility], VIA MEDICAL TRANSPORTATION. IV D/C'D. OVER NEEDLE CATH INTACT. CONDITION STABLE. DISCHARGE PAPER SIGNED BY PATIENT'S SON.
--- NOTE | 2019-04-27 09:20 | NUR ---
REPORT GIVEN TO THOMAS KO, JESS MCPHERSON.
== END 2019-04-27 09:06 | DRG 682 ==
LOC: ED 12:12 → DU 14:56
PROVIDERS: Emergency Medicine; Internal Medicine; ADMIT Internal Medicine
DX: N17.9 Acute kidney failure, unspecified (principal); G93.41 Metabolic encephalopathy; E87.2 Acidosis; N18.4 Chronic kidney disease, stage 4 (severe); R21 Rash and other nonspecific skin eruption; E86.0 Dehydration; E86.1 Hypovolemia; E87.5 Hyperkalemia; J44.9 Chronic obstructive pulmonary disease, unspecified; I27.20 Pulmonary hypertension, unspecified; I12.9 Hypertensive chronic kidney disease with stage 1 through stage 4 chronic kidney disease, or unspecified chronic kidney disease; E11.22 Type 2 diabetes mellitus with diabetic chronic kidney disease; D63.1 Anemia in chronic kidney disease; I25.10 Atherosclerotic heart disease of native coronary artery without angina pectoris; G30.9 Alzheimer's disease, unspecified; F02.80 Dementia in other diseases classified elsewhere, unspecified severity, without behavioral disturbance, psychotic disturbance, mood disturbance, and anxiety; E03.9 Hypothyroidism, unspecified; E78.5 Hyperlipidemia, unspecified; Z68.23 Body mass index [BMI] 23.0-23.9, adult; Z95.5 Presence of coronary angioplasty implant and graft; Z96.653 Presence of artificial knee joint, bilateral; Z79.84 Long term (current) use of oral hypoglycemic drugs; Z22.322 Carrier or suspected carrier of Methicillin resistant Staphylococcus aureus
CPT/HCPCS: 82962; 83880; 97110-GP; 97116-GP; 97530-GP; G0378; G0480; J1200; J1815; J2060; J3475; J3490; Q0092; Q0163

== ENCOUNTER 2019-09-25 18:41 | Inpatient (IN) | payer OTHER ==
[~2019-09-25] VITALS: Ht 167.6 cm; Wt 67.2 kg
[~2019-09-25 18:41] MED LIST changes: +ARICEPT10 MG PO; +ASPIR LOW81 MG PO; +DIT5; +FISH OIL1000 MG PO; +GABAPENTIN100 M2 PO; +GOOD NEIGH1200 MG/15 PO; +LIPI20 PO; +MASON NATURAL1000 IU PO; +MELOXICAM7.5 M1 PO; +METFORMIN500 M1 PO; +OYSTER SHELL 51 EAC1 PO; +PERCOCET1 TA5 PO; +PLAVIX75 M1 PO; +SUNMARK PAIN R325 MG PO; +VOLTAREN-XR100 MG; +XEROFORM PETRO1 EAC4 TP
--- NOTE | 2019-09-25 18:57 | NUR ---
PT BIBA FROM HOME WITH CO GEN WEAKNESS AND DIARRHEA X 1 WEEK. PER MEDIC, PT WAS SEEN LAST WEEK FOR SAME SYMPTOMS AND SENT HOME WITH NO DX OF CDIFF OR ANY OTHER ILLNESSES. PER MEDIC FAMILY CALLED 911 DUE TO HER INCREASE IN GEN WEAKNESS. PER MEDIC PT IS BED BOUND. PT NOTED WITH ADULT DIAPER. PT NOTED WITH [place] BOOTIES FOR SORES THAT ARE BEING CARED FOR AT THE BOTTOM OF HER HEELS. AT THIS TIME PT IS AWAKE AND ALERT AND ABLE TO STATE NAME, , LOCATION, AND YEAR. PT HAS HX OF DEMENTIA AND PER MEDIC, PT AT BASELINE. PT DENIES ANY PAIN AT THIS TIME. PT IS HOOKED UP TO FULL MONITORS, SIDE RAILS UP, CALL LIGHT IN REACH, WILL CONTINUE TO MONITOR.
--- NOTE | 2019-09-25 19:02 | NUR ---
PT DAUGHTER AT BEDSIDE. 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 PER DAUGHTER PT WAS ALSO SEEN AT [place] A WEEK AGO NOT [facility] AND STAYED FOR 5 DAYS. PER DAUGHTER SHE WAS INSTRUCTED TO CALL 911 IF PT STARTED TO CHOKE/COUGH WHILE EATING. PER DAUGHTER PT STILL HAVING DIARRHEA WELL. PER DAUGHTER PT HAS SCABS/ABRASIONS TO WHOLE BODY THAT IS DUE TO PT SCRATCHING. PER DAUGHTER THEY WERE PRESCRIBED CREAM FOR THIS ITCHING. AT THIS TIME PT IS AWAKE AND ALERT. BREATHING EVEN AND UNLABORED. WILL CONTINUE TO MONITOR.
--- NOTE | 2019-09-25 19:11 | NUR ---
PER DAUGHTER PT IS A DNR.
--- NOTE | 2019-09-25 19:21 | NUR ---
DR ALVAREZ AT BEDSIDE AND JERI LIPSCOMB.
--- NOTE | 2019-09-25 19:23 | NUR ---
REPORT GIVEN TO GARRY GUZMAN FOR FURTHER CARE OF PT
--- NOTE | 2019-09-25 20:17 | NUR ---
PER DR ALVAREZ THAT OKAY TO STRAIGHT CATH PT FOR UA. PT TOLERATED WELL WITH STRAIGHT CATH.
--- NOTE | 2019-09-25 20:30 | NUR ---
PT TO CT HEAD VIA GURNEY WITHOUT ANY DISTRESS.
[2019-09-25 20:45] LABS: BASOPHIL % 0.5 % (0-2); PLATELET COUNT 298 x10^3mcL (130-400)
[2019-09-25 20:47] LABS: UA SPECIFIC GRAVITY 1.025 (1.005-1.035); microscopic required? YES; urine erythrocyte NEGATIVE (NEGATIVE)
[2019-09-25 20:50] LABS: RED CELL DISTRIBUTION WIDTH 15.3 % (11.5-14.5)
[2019-09-25 20:53] LABS: CALCIUM 10.4 mg/dL (8.5-10.1); CHLORIDE SERUM 111 mmol/L (98-107); CREATININE SERUM 2.1 mg/dL (0.6-1.0); GLUCOSE SERUM 133 mg/dL (74-106); POTASSIUM SERUM 4.7 mmol/L (3.5-5.1); SODIUM SERUM 146 mmol/L (136-145)
[2019-09-25 20:57] LABS: ALBUMIN 2.6 g/dL (3.4-5.0); ALKALINE PHOSPHATASE 104 U/L (46-116); ALT/SGPT 17 U/L (14-59); AST/SGOT 23 U/L (15-37); BILIRUBIN TOTAL 0.36 mg/dL (0.20-1.00); LIPASE 112 IU/L (73-393); TOTAL PROTEIN, SERUM 6.7 g/dL (6.4-8.2)
--- NOTE | 2019-09-25 21:39 | NUR ---
DR ALVAREZ AT BEDSIDE AND DISCUSSED POC WITH PT'S FAMILY
[2019-09-25] MEDS ORDERED: LIPITOR10 MG PO (21:40)
[2019-09-25] MEDS ORDERED: CLARITIN10 MG PO (21:41)
[2019-09-25] MEDS ORDERED: NOR5 PO (21:41)
[2019-09-25] MEDS ORDERED: ABILIFY5 M1 PO (21:42)
[2019-09-25] MEDS ORDERED: VIT C-ROSE HIP500 MG PO (21:43)
[2019-09-25] MEDS ORDERED: KETOCONAZOLE2% TOP (21:45)
[2019-09-25] MEDS ORDERED: VYVANSE20 MG PO (21:45)
[2019-09-25] MEDS ORDERED: OYSCO 500-VIT1 EACH PO (21:45)
[2019-09-25] MEDS ORDERED: VIS25 PO (21:46)
[2019-09-25] MEDS ORDERED: ARICEPT10 MG PO (21:46)
[2019-09-25] MEDS ORDERED: NAMENDA10 M2 PO (21:47)
[2019-09-25] MEDS ORDERED: GLUCOTROL10 MG PO (21:50)
[2019-09-25] MEDS ORDERED: NATURAL IRON65 MG PO (21:50)
[2019-09-25] MEDS ORDERED: FLUOCINONIDE0.05% TOP (21:51)
[2019-09-25] MEDS ORDERED: NEURONTIN100 MG PO (21:52)
[2019-09-25] MEDS ORDERED: NITROSTAT0.4 MG SL (21:52)
[2019-09-25] MEDS ORDERED: APAP325 MG PO (21:53)
--- NOTE | 2019-09-25 22:24 | NUR ---
PT IS CONFUSED AND RESTLESS AT TIMES, FAMILY AT BEDSIDE.
--- NOTE | 2019-09-25 22:34 | NUR ---
REPORT GIVEN TO SANDI, ALL QUESTIONS ANSWERED AND CONCERNS ADDRESSED.
--- NOTE | 2019-09-25 23:04 | NUR ---
PT WAS RECEIVED BY PRIMARY NURSE CANDIE FROM ED VIA GUERNEY, PT CAME IN DUE TO WEAKNESS. PT IS ALERT, AWAKE AND ORIENTED TO PERSON, PLACE, AND BIRTHDATE. ABLE TO FOLLOW SIMPLE COMMANDS. NO SOB NOTED, LUNG SOUNDS DIMINISHED ON AUSCULTATION, O2 SAT=96%, RA. DENIES CHEST PAIN/PRESSURE. DENIES ABDOMINAL PAIN/NAUSEA/VOMITING. PER PT'S DAUGHTER, PT STARTED TO HAVE WATERY STOOLS YESTERDAY AND HAD POOR APPETITE. PER PT'S DAUGHTER, PT HAD 4 EPISODES OF WATERY STOOLS TODAY. URINE INCONTINENT. PT SKIN ASESSMENT DONE BY PRIMARY NURSE CANDIE. SIDE RAILS UPX2. CALL LIGHT ON REACH. HOB ELEVATED AT 30 DEG. FAMILY AT BEDSIDE. PRIMARU NURSE CANDIE AT BEDSIDE FOR CONTINUITY OF CARE
[2019-09-25 23:31] VITALS: BP 135/60
--- NOTE | 2019-09-26 | NUR ---
INITIAL SKIN ASSESSMENT.PT NOTED WITH MULTIPLE SCRATCH WOUND TO BILATERAL THIGH AND LEGS.INCONTINENT DERMATITIS TO ELIZABETH AREA.ERYTHEMA,NON-BLACHABLE TO L HEEL AND R HEEL ERYTHEMA,NON-BLANCHABLE.HEEL PROTECTOR APPLIED.ON PRESSURE MATTRESS.WILL CONTINUE TO MONITOR.
--- NOTE | 2019-09-26 00:21 | NUR ---
CALLED DR. OLIVEIRA AND MADE AWARE PT DNR STATUS LAST ADMISSION ON APRIL 2019 AND ALSO CONFIRMED WITH DAUGHTER WHO IS AT BEDSIDE.DNR STATUS ORDERED.OBTAINED PRN MEDS FOR ITCHING WELL.WILL CONTINUE TO MONITOR.
--- NOTE | 2019-09-26 04:35 | NUR ---
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
[2019-09-26 06:08] VITALS: BP 115/45
[2019-09-26 06:20] LABS: BASOPHIL % 0.3 % (0-2); PLATELET COUNT 269 x10^3mcL (130-400)
[2019-09-26 06:35] LABS: CARBON DIOXIDE 25.3 mmol/L (21-32); CHLORIDE SERUM 112 mmol/L (98-107); CREATININE SERUM 1.9 mg/dL (0.6-1.0); GLUCOSE SERUM 142 mg/dL (74-106); POTASSIUM SERUM 4.2 mmol/L (3.5-5.1); SODIUM SERUM 145 mmol/L (136-145)
[2019-09-26 06:37] LABS: RED CELL DISTRIBUTION WIDTH 15.4 % (11.5-14.5)
--- NOTE | 2019-09-26 07:15 | NUR ---
RECEIVED PT FROM COMPOSITION TILE LAYER. PT AWAKE, ALERT. A/OX2 WITH CONFUSION NOTED. PT HAS HX OF DEMENTIA. PT ON ROOM AIR WITH NO RESP DISTRESS NOTED. DENIES CHEST PAIN. PT NOTED TO HAVE COUGH. IV ACCESS RFA 22G CDI INFUSING D5NS AT 80ML/HR. PERIPHERAL PULSES PALPABLE, NO EDEMA NOTED. ACTIVE BS NOTED. PT LAST BM YESTERDAY NOTED TO BE LOOSE PER FAMILY. PT NOTED TO HAVE GENERALIZED WEAKNESS. PT HAS MULTIPLE SCRATCH WOUND TO BILATERAL THIGHS AND LEGS. FAMILY AT BEDSIDE. SAFETY MEASURES IN PLACE, BED LOW AND LOCKED. CALL LIGHT WITHIN REACH.
[2019-09-26 08:19] VITALS: BP 106/49
--- NOTE | 2019-09-26 09:05 | NUR ---
PT PENDING SWALLOW EVALUATION. UNABLE TO GIVE MORNING MEDICINE AT THIS TIME. VSS, NO ACUTE DISTRESS OR DISCOMFORT NOTED.
--- NOTE | 2019-09-26 09:45 | NUR ---
DR. OLIVEIRA AWARE PT DID NOT RECEIVE MORNING MEDS PENDING SWALLOW EVALUATION.
--- NOTE | 2019-09-26 11:30 | NUR ---
TOPICAL CREAMS APPLIED TO AFFECTED AREAS AT THIS TIME. PT REPOSITIONED WITH PUBLIC AFFAIRS OFFICER. FAMILY AT BEDSIDE. NS AT 50ML/HR STARTED AT THIS TIME. NO ACUTE DISTRESS NOTED. AWAITING SWALLOW EVALUATION.
--- NOTE | 2019-09-26 12:45 | NUR ---
RECEIVED TELEPHONE ORDER FROM DR OLIVEIRA TO START LEVAQUIN 500MG IVPB Q DAILY FOR POSITIVE UA.
[2019-09-26 13:15] VITALS: BP 114/43
--- NOTE | 2019-09-26 15:07 | NUR ---
DUE ANTIBIOTIC STARTED AT THIS TIME ORDERED. PT CLEANED AND REPOSITIONED WITH ETL DEVELOPER. PT URINATED. SAFETY MEASURES MAINTAINED.
[2019-09-26 15:28] VITALS: Ht 167.6 cm; Wt 67.2 kg
--- NOTE | 2019-09-26 15:49 | NUR ---
ST AT BEDSIDE AT THIS TIME.
--- NOTE | 2019-09-26 15:52 | NUR ---
PT WAS SEEN FOR DYSPHAGIA. PT WAS ABLE TO SAFELY SWALLOW PUREE DIET WITH THIN LIQUID. PT HAS DEMENTIA AND POCKETING FOR MS DIET. RECOMMENDATION PUREE DIET WITH THIN LIQUID SMALL BITES AND SIPS ONLY.
--- NOTE | 2019-09-26 16:21 | NUR ---
PER ST, PATIENT PASSED SWALLOW EVAL. ABLE TO TAKE PUREE WITH THIN LIQUIDS. PT ABLE TO SWALLOW DUE CRUSHED MEDS WITH APPLESAUCE WITH NO ISSUES AT THIS TIME. FAMILY AT BEDSIDE.
[2019-09-26 16:55] VITALS: BP 121/52
--- NOTE | 2019-09-26 18:33 | NUR ---
STOOL FOR CDIFF COLLECTED AND TAKEN TO LAB. PT CLEANED AND REPOSITIONED WITH WORKDAY MANAGER.
--- NOTE | 2019-09-26 18:53 | NUR ---
PT STABLE AT THIS TIME. ALL NEEDS TENDED TO THROUGHOUT SHIFT. WILL CONTINUE TO MONITOR AND ENDORSE CARE TO HAT MARKER.
--- NOTE | 2019-09-26 19:30 | NUR ---
PT SEEN, RESTING IN BED, AWAKE, ALERT AND ORIENTED TO SELF, PT WITH PERIODS OF CONFUSION AND FORGETFUL, DENIES HEADACHE OR DIZZINESS, BREATHING EVEN AND UNLABORED, LUNG SOUNDS DIMINISHED, ON ROOM AIR WITH NO RESP DISTRESS NOTED, ON AND OFF PRODUCTIVE COUGH, DENIES CHEST PAIN, IVF INFUSING WELL, PULSES PALPABLE, NO EDEMA NOTED, GENERALIZED WEAKNESS, [place] HEEL WITH WOUND, HEEL PROTECTOR IN PLACE, ON AIR MATTRESS, ABD FLAT WITH HYPERACTIVE BS, PT HAD WATERY GREENISH STOOL, GOOD ELIZABETH CARE GIVEN, INCONTINENT IN PLACE, PT HAS ABRASION TO GENERALIZED BODY DUE TO SCRATCHING, NO DISTRESS NOTED, WILL KEEP TO MONITOR.
[2019-09-26 20:56] VITALS: BP 127/48
[2019-09-27 05:44] VITALS: BP 131/47
--- NOTE | 2019-09-27 06:36 | NUR ---
PT AWAKE AT THIS TIME, SLEPT ON AND OFF WHOLE NIGHT, GOOD ELIZABETH CARE GIVEN, IVF INFUSING WELL, MORNING BLOOD SUGAR:81 MG/DL WITH NO RISS, NO DISTRESS NOTED, WILL KEEP TO MONITOR.
[2019-09-27 06:41] LABS: CALCIUM 9.9 mg/dL (8.5-10.1); CARBON DIOXIDE 29.4 mmol/L (21-32); CHLORIDE SERUM 113 mmol/L (98-107); CREATININE SERUM 1.6 mg/dL (0.6-1.0); GLUCOSE SERUM 81 mg/dL (74-106); POTASSIUM SERUM 4.4 mmol/L (3.5-5.1); SODIUM SERUM 147 mmol/L (136-145)
[2019-09-27 06:55] LABS: BASOPHIL % 0.3 % (0-2); PLATELET COUNT 253 x10^3mcL (130-400)
[2019-09-27 06:58] LABS: RED CELL DISTRIBUTION WIDTH 15.4 % (11.5-14.5)
--- NOTE | 2019-09-27 07:27 | NUR ---
BEDSIDE HANDOFF REPORT GIVEN TO DIMITRY, ALL QUESTIONS ANSWERED AND CONCERNS ADDRESSED. PT WITH NO DISTRESS NOTED.
--- NOTE | 2019-09-27 07:29 | NUR ---
RECEIVED PATIENT. IN BED, AWAKE. AOX1. HX OF DEMENTIA. FAMILY AT BEDSIDE. NO ACUTE RESP DISTRESS NOTED. REMAINS ON ROOM AIR. COUGHING NOTED. NO COMPLAINTS OF PAIN NOTED. IV INTACT AND PATENT. NS 50ML/HR TO RFA, NO INFILTRATION NOTED. SAFETY PRECAUTION IN PLACE. CALL LIGHT WITHIN REACH. WILL CONTINUE TO MONITOR.
--- NOTE | 2019-09-27 08:39 | NUR ---
SPOKE WITH DR. OLIVEIRA REGARDING PATIENT HAVING ON AND OFF COUGH AND FAMILY REQUESTED COUGH MEDICINE. PER DR. OLIVEIRA, OK TO PUT IN ORDER RUBITUSSIN 100MG PO Q4H PRN. WILL PUT IN ORDER AND NOTIFY FAMILY MEMBER. WILL CONTINUE TO MONITOR.
--- NOTE | 2019-09-27 09:34 | NUR ---
PATIENT NOTED TO HAVE LLQ ABD PAIN. FACIAL GRIMACING NOTED. PER FAMILY, PATIENT IS HAVING PAIN TO LLQ ABD PAIN. TYLENOL 650MG PO GIVEN. WILL CONTINUE TO MONITOR. NO ACUTE RESP DISTRESS NOTED. REMAINS ON ROOM AIR. IV INTACT AND PATENT. NO ERYTHEME/REDNESS NOTED TO IV SITE. SAFETY PRECAUTION IN PLACE. HEEL PROTECTORS IN PLACE. WILL CONTINUE TO MONITOR. FAMILY AT BEDSIDE.
--- NOTE | 2019-09-27 09:35 | NUR ---
PATIENT NOTED TO HAVE INTERMITTENT COUGH. ROBITUSSIN PRN GIVEN ORDERED. WILL CONTINUE TO MONITOR.
[2019-09-27 09:37] VITALS: BP 127/44
--- NOTE | 2019-09-27 10:05 | NUR ---
CALLED LAB TO FOLLOW UP WITH CDIFF RESULTS. STATED THAT IT WILL TAKE 40 MINS FOR THE RESULTS. ASKED THEM TO CALL GI LAB TO TELL DR. WHEELER. REQUESTED BY DR. WHEELER. VERBALIZED UNDERSTANDING. WILL CONTINUE TO MONITOR.
--- NOTE | 2019-09-27 10:19 | NUR ---
SPOKE WITH DR. OLIVEIRA REGARDING POSITIVE MRSA RESULT. PER DR. OLIVEIRA, OK TO PUT IN ORDER FOR MRSA PROTOCOL. WILL CONTINUE TO MONITOR.
[2019-09-27 13:40] VITALS: BP 115/46
--- NOTE | 2019-09-27 13:54 | NUR ---
SPOKE WITH DR. OLIVEIRA REGARDING POSITIVE CDIFF RESULTS FOR THIS PATIENT. DR. OLIVEIRA ORDERED FLAGYL 250 MG QID. WILL CARRY OUT ORDER. WILL CONTINUE TO MONITOR PATIENT. CALLED DR. WHEELER TWICE, NO ANSWER, BUT LEFT VOICEMAIL. STILL AWAITING CALL BACK FROM DR. WHEELER TO LET HIM KNOW ABOUT CDIFF RESULTS.
--- NOTE | 2019-09-27 14:05 | NUR ---
SPOKE WITH DR. WHEELER REGARDING POSITIVE CDIFF RESULTS. PER DR. WHEELER, PROCEDURE TOMORROW WILL BE PUT ON HOLD AND CONTINUE PATIENT ON REGULAR DIET TOLERATED. NOTIFIED DR. WHEELER THAT DR. OLIVEIRA ORDERED FLAGYL ABX 250 MG QID FOR [address] WHEELER, CONTINUE ABX AND AND CONTINUE TO MONITOR PT.
--- NOTE | 2019-09-27 14:30 | NUR ---
PATIENT COMPLAINING OF PAIN NOTED BY FACIAL GRIMACING. TYLENOL 650 MG PO GIVEN. WILL CONTINUE TO MONITOR.
[2019-09-27 14:33] LABS: IRON 41 ug/dL (50-170)
[2019-09-27 14:37] LABS: TOTAL IRON BINDING CAPACITY 171 ug/dL (250-450)
--- NOTE | 2019-09-27 15:36 | NUR ---
PATIENT IN BED, STABLE. NO ACUTE RESP DISTRESS NOTED. REMAINS ON ROOM AIR. PER FAMILY, PATIENT STILL HAS PAIN. EDUCATED FAMILY THAT DOCTOR IS AWARE OF THE PAIN AND DR. WHEELER WOULD LIKE TO HOLD PROCEDURE BECAUSE OF CDIFF. ALSO NOTFIED FAMILY OF NEW MEDICATION FOR CDIFF. FAMILY VERBALIZED UNDERSTANDING. NO NOTED FACIAL GRIMACING RELATED TO PAIN BY PATIENT. INSTRUCTED FAMILY TO NOT AGGRAVATE PAIN BY PRESSING ON THE ABDOMEN. VERBALIZED UNDERSTANDING. IV INTACT AND PATENT. NO ERYTHEMA/SWELLING NOTED. PATIENT HAD X3 BM TODAY. PERINEAL CARE PROVIDED EACH TIME. CALL LIGHT WITHIN REACH. WILL CONTINUE TO MONITOR.
[2019-09-27 17:15] VITALS: BP 120/53
--- NOTE | 2019-09-27 17:45 | NUR ---
PATIENT GIVEN ORANGE JUICE AND APPLE JUICE TO HELP ELEVATE BLOOD GLUCOSE RESULT OF 62. TOLERATED WELL. NO ACUTE DISTRESS NOTED. NO COMPLAINTS OF PAIN. PATIENT RESTING COMFORTABLY IN BED. IV INTACT AND PATENT. WILL CONTINUE TO MONITOR.
--- NOTE | 2019-09-27 19:25 | NUR ---
PATIENT IN BED, STABLE. KATHY CUTE RESP DISTRESS NOTED. NO COMPLAINTS OF PAIN. PATIENT RESTING COMFORTABLY IN BED. FAMILY AT BEDSIDE. ALL NEEDS MET. SAFETY PRECAUTION IN PLACE. ENDORSED CARE TO PRODUCT CONSULTANT NURSE.
--- NOTE | 2019-09-27 19:30 | NUR ---
RECIEVED PT RESTING IN BED WITH FAMILY MEMBER AT BEDSIDE, ASSESSMENT PERFORMED AT THIS TIME, PT IS A/OX1 TO PERSON, CONFUSED, PT DENIES GUILLERMO OR DIZZINESS AT THIS TIME, PT DENIES PAIN OR SOB, IV TO THE RFA, 20G, INFUSING NS AT 50ML/HR. ALL PT NEEDS ATTENDED TO AT THIS TIME, SAFETY PRECAUTIONS IN PLACE, WILL CONTINUE TO MONITOR
--- NOTE | 2019-09-27 20:45 | NUR ---
PT BLOOD SUGAR 68, GAVE PT TWO ORANGE JUICES, PT ASYMPTOMATIC, WILL CONTINUE TO MONITOR
[2019-09-27 20:51] VITALS: BP 145/54
--- NOTE | 2019-09-27 22:46 | NUR ---
PT COMPLAINING OF COUGH, ADMINISTERED ROBITUSSIN PRN PER ORDER, WILL CONTINUE TO MONITOR
--- NOTE | 2019-09-28 00:15 | NUR ---
PT RESTING IN BED WITH NO ACUTE DISTRESS NOTED AT THIS TIME, PT WITH FAMILY MEMBER AT BEDSIDE, PT DENIES PAIN OR SOB, ALL PT NEEDS ATTENDED TO, SAFETY PRECAUTIONS IN PLACE, WILL CONTINUE TO MONITOR
[2019-09-28 05:10] VITALS: BP 117/77
--- NOTE | 2019-09-28 05:38 | NUR ---
PT BLOOD SUGAR 54, SECOND 59, ADMINISTERED D50
--- NOTE | 2019-09-28 06:15 | NUR ---
PT BG 167 NOW, INFORMED DR OLIVEIRA, CHANGED DLUIDS FROM NS TO D5 AT 50 PER HOUR
[2019-09-28 06:28] LABS: BASOPHIL % 0.2 % (0-2); PLATELET COUNT 235 x10^3mcL (130-400)
[2019-09-28 06:45] LABS: CALCIUM 9.6 mg/dL (8.5-10.1); CHLORIDE SERUM 111 mmol/L (98-107); CREATININE SERUM 1.5 mg/dL (0.6-1.0); GLUCOSE SERUM 201 mg/dL (74-106); POTASSIUM SERUM 4.3 mmol/L (3.5-5.1); SODIUM SERUM 144 mmol/L (136-145)
--- NOTE | 2019-09-28 06:53 | NUR ---
PT RESTED THROUGH THE NIGHT WITH NEW ACUTE DISTRESS NOTED DURING SHIFT, ALL PT NEEDS ATTENDED TO, PT HAD ONE EPISODE OF BACK PAIN 3/10 ADMINISTERED TYLENOL TO EFFECT (SEE MAR), FAMILY MEMBER REMAINED AT BEDSIDE, SAFETY PRECAUTIONS REMAINED IN PLACE, WILL CONTINUE TO MONITOR
--- NOTE | 2019-09-28 07:20 | NUR ---
RECEIVED PT. IN BED SLEEPING. PT. CAN BE AROUSED EASILY. PT. IS ONLY ORIENTED TO PERSON. NO SOB, NO N/V NOTED. PT. DENIES ANY PAIN AT THIS TIME. NS RUNNING AT 50 CC/HR VIA IV SITE AT R FA. PT. IS ON CONTACT ISOLATION FOR C. DIFF. POSITIVE AND MRSA NARES. SCD TO BLE MAINTAINED. PT. IS ON AIR MATTRESS. DAUGHTER AT BEDSIDE. BED IN LOW POS., CALL LIGHT WITHIN REACH. SIDE RAILS UP X3.
[2019-09-28 07:23] LABS: RED CELL DISTRIBUTION WIDTH 15.4 % (11.5-14.5)
[2019-09-28 09:23] VITALS: BP 108/73
[2019-09-28 13:01] VITALS: BP 117/43
--- NOTE | 2019-09-28 13:58 | NUR ---
Initial Nutrition Assessment: 216/B MARYAM SMITH HR Dx: UTI PMHx: CAD, HTN, DM, dementia, [place] PSHx: None (KNEE) Labs: BG 201H, CREAT 1.5H, ALB 2.6L, WBC 3.9L, HGB 7.8L Meds: Ambien, Aricept, Ativan, D 50%, Humulin, flagyl, Glucotrol, Lipitor, oyster shell calcium, phenegran, Vitamin C Diet: Renal, puree PO intake since admission: (09/27) lunch, breakfast 10% Ht: 167.64 cm (66") Wt: 67 kg (147#) BMI: 23.9 kg/m2 Bed scale: 147# IBW: 130# (59 kg) %IBW: 113 UBW: unbale to access as pt/ family member not aware Age: 88/F Food Allergies: NKFA Skin: scratches throughout body, ulcers on bilateral feet Pablo: 15 Edema: none GI: C. Diff positive, diarrhea Last BM: 09/26 Per H&P, Pt is a 88 YO female h/o CAD, HTN, DM, dementia c/o increased diarrhea ongoing x 1 week. Also, c/o increased weakness. c/o dysphagia trouble swallowing food. RD Note (09/28): Patient was sleeping. Family member was at bedside. Per family member patient has had significant weight loss but she was not able to provide detailed information. Per THOMAS Oh, Dr. Stewart recommends adding ONS of patient's choice and has allowed patient to bring food from home due to poor PO. Per family member, pt will be willing to drink ONS Glucerna. Problem with: N/V/D/C: none Problems with: Chewing: Swallowing: yes, on puree Current appetite: poor Recent wt change: yes, not sure about no. of lbs %wt change: n/a Vitamin/Supplement use: none Special diet at home: Regular Physical activity: none Nutrition education given: not possible at this time. Food-drug interactions: none Education given: n/a Estimated Nutritional Needs Based on current body weight (67 kg) Energy: 2679-0291 kcal/day (30-35 kcal/kg for c. diff, geriatric age) Protein: 80-94 g/day (1.2-1.4 g/kg for c. diff, geriatric age) Fluid: 5172-0467 mL/day (1 mL/kcal) Nutrition Diagnosis: 1. Inadequate oral intake related to poor appetite as evidenced by documented PO 10% Intervention 1. Recommend continuing with puree diet instead of renal puree as patient does not have any kidney problems. 2. Recommend ONS Glucerna BID. Spoke with Dr. Davies and RN Althea. Monitor/Evaluate Goal: PO intake at least 75% of estimated needs Monitor: PO intake, Labs, GI function F/U in 2-3 days as high risk 09/30-
--- NOTE | 2019-09-28 13:58 | NUR ---
1. Recommend continuing with puree diet instead of renal puree as patient does not have any kidney problems. 2. Recommend ONS Glucerna BID. Spoke with Dr. Davies and THOMAS Oh.
[2019-09-28 17:15] VITALS: BP 136/43
--- NOTE | 2019-09-28 18:22 | NUR ---
REMAINS IN STABLE CONDITION AT THIS TIME. WILL CONTINUE TO MONITOR.
--- NOTE | 2019-09-28 19:25 | NUR ---
RECIEVED PT RESTING IN BED, NO ACUTE DISTRESS NOTED. PT AOX1 (SELF), WILL PROVIDE REORIENTATION PRN. MEDSURG PT, DENIES CP. PULSES PALPABLE BILAT, DENIES NUMBNESS/TINLGING IN FEET. RESP EVEN AND UNLABORED ON RA, DENIES SOB. PRODUCTIVE COUGH NOTED, WILL MEDICATE PER ORDER. CTA UPPER LOBES, DIM BILAT BASES. ABD SOFT, ROUND, DENIES PAIN WITH PALPATION, PT HAS BEEN HAVING LOOSE STOOLS, ON CONTACT PROCAUTION FOR C DIFF. PT INCONTINENT OF URINE AND STOOL. WILL ENSURE PT REMAINS CLEAN AND DRY THROUGHOUT SHIFT. DAUGHTER AT BEDSIDE ASSISTING WITH CHECKS. PT DENIES PAIN AT THIS TIME. BILAT HEELS IN SOFT PROTECTORS, LEFT HEEL WITH SKIN TEAR, COVERED WITH VERSITEL, CDI. IV SITE TO THE RFA, D5W @ 50ML/HR. NO REDNESS, SWELLING OR PAIN NOTED. PT ON FLAGYL PO, ALL COMFORT AND SAFETY MEASURES PROVIDED FOR, CALL LIGHT WITHIN REACH, BED IN LOWEST POSITION, WILL CONTINUE TO MONITOR.
[2019-09-28 21:09] VITALS: BP 134/57
--- NOTE | 2019-09-28 21:45 | NUR ---
PROVIDED PT SCHEDULED MEDICATION PER ORDER, CRUSHED MEDS IN APPLE SAUCE AND DAUGHTER ASSISTED IN PROVIDING TO PT. PT TOLERATED MEDICATION WELL IN A HIGH FOWLERS POSITION, MEDICATED PT WITH COUGH SYRUP PER REQUEST. ALL COMFORT AND SAFETY MEASURES PROVIDED FOR, PT HAS ONE SMALL LOOSE STOOL CLEANED BY CASKET ASSEMBLER METAL, ALL COMFORT AND SAFETY MEASURES PROVIDED FOR, CALL LIGHT WITHIN REACH, BED IN LOWEST POSITION, WILL CONTINUE TO MONITOR.
--- NOTE | 2019-09-29 05:15 | NUR ---
PT RESTED IN INTERVALS DURING SHIFT, NO ACUTE CHANGES OCCURRING OVERNIGHT. PT HAD SMALL LOOSE STOOLS, DENIES N/V/D. PT REMAINS ON RA, DENIES SOB. PT CONFUSED AT TIMES, ABLE TO REORIENT. IV SITE REMAINS PATENT TO [facility], ALL COMFORT AND SAFETY MEASURES PROVIDED FOR, CALL LIGHT WITHIN REACH, BED IN LOWEST POSITION, WILL CONTINUE TO MONITOR.
[2019-09-29 05:54] VITALS: BP 142/62
--- NOTE | 2019-09-29 07:25 | NUR ---
RECEIVED PT FROM CAMPGROUND CARETAKER. PT AWAKE, ALERT. A/OX1. PT ON ROOM AIR WITH NO RESP DISTRESS NOTED. IV ACCESS RFA, CDI INFUSING D5W AT 50ML/HR. PERIPHERAL PULSES PALPABLE, NO EDEMA NOTED. ACTIVE BS NOTED. PT NOTED TO HAVE LOOSE STOOL. PT INCONTINENT OF URINE. DENIES ABDOMINAL PAIN. PT NOTED TO HAVE GENERALIZED WEAKNESS. PT ITCHY TO BODY WITH GENERALIZED ABRASIONS NOTED THROUGHOUT BODY. PT WITH BILATERAL HEEL PROTECTORS. FAMILY AT BEDSIDE. SAFETY MEASURES IN PLACE, BED LOW AND LOCKED. CALL LIGHT WITHIN REACH.
[2019-09-29 08:12] VITALS: BP 148/57
--- NOTE | 2019-09-29 09:08 | NUR ---
DUE MEDICATIONS ADMINISTERED. PT TOLERATED WELL. PER FAMILY, PT WILL NOT EAT PUREED FOOD. DR OLIVEIRA IN HOUSE AWARE, OK TO CHANGE DIET TO MECHANICAL SOFT.
--- NOTE | 2019-09-29 10:13 | NUR ---
PT NOTED TO HAVE INTERMITTANT COUGHING. ROBITUSSIN ADMINISTERED ORDERED PRN (SEE EMAR). WILL MONITOR.
[2019-09-29 10:36] LABS: BASOPHIL % 0.2 % (0-2); PLATELET COUNT 223 x10^3mcL (130-400)
[2019-09-29 10:44] LABS: ALKALINE PHOSPHATASE 86 U/L (46-116); ALT/SGPT 19 U/L (14-59); AST/SGOT 22 U/L (15-37); BILIRUBIN TOTAL 0.3 mg/dL (0.20-1.00); CALCIUM 9.8 mg/dL (8.5-10.1); CARBON DIOXIDE 28.8 mmol/L (21-32); CHLORIDE SERUM 105 mmol/L (98-107); CREATININE SERUM 1.4 mg/dL (0.6-1.0); GLUCOSE SERUM 157 mg/dL (74-106); PHOSPHOROUS 2.3 mg/dL (2.5-4.9); SODIUM SERUM 137 mmol/L (136-145)
[2019-09-29 10:45] LABS: RED CELL DISTRIBUTION WIDTH 15.1 % (11.5-14.5)
[2019-09-29 10:47] LABS: ALBUMIN 2.3 g/dL (3.4-5.0)
[2019-09-29 12:04] LABS: CALCIUM 10.1 mg/dL (8.5-10.1); CARBON DIOXIDE 25.4 mmol/L (21-32); CHLORIDE SERUM 106 mmol/L (98-107); CREATININE SERUM 1.4 mg/dL (0.6-1.0); GLUCOSE SERUM 156 mg/dL (74-106); POTASSIUM SERUM 4.1 mmol/L (3.5-5.1); SODIUM SERUM 139 mmol/L (136-145)
--- NOTE | 2019-09-29 12:20 | NUR ---
DUE MEDICATIONS ADMINISTERED. PT TOLERATED WELL. FAMILY AT BEDSIDE. NO ACUTE DISTRESS NOTED AT THIS TIME.
[2019-09-29 12:37] VITALS: BP 138/56
--- NOTE | 2019-09-29 16:35 | NUR ---
PT BS 113 AT THIS TIME. NO COVERAGE NEEDED.
--- NOTE | 2019-09-29 16:54 | NUR ---
PHOS 2.3, DR. OLIVEIRA AWARE, NO NEW ORDERS AT THIS TIME
--- NOTE | 2019-09-29 17:30 | NUR ---
PT NOTED TO HAVE INTERMITTANT COUGHING. ROBITUSSIN ADMINISTERED AT THIS TIME FOR COMFORT. DUE MEDICATIONS ADMINISTERED. PT TOLERATED WELL. WILL MONITOR.
[2019-09-29 17:31] VITALS: BP 138/45
--- NOTE | 2019-09-29 18:42 | NUR ---
PT STABLE AT THIS TIME. ALL NEEDS TENDED TO THROUGHOUT SHIFT. FAMILY AT BEDSIDE. WILL CONTINUE TO MONITOR AND ENDORSE CARE TO ONCOLOGY RADIATION PHYSICIAN.
[2019-09-29 19:27] VITALS: BP 138/44
[2019-09-29 19:40] VITALS: BP 138/44
--- NOTE | 2019-09-29 19:40 | NUR ---
RECEIVED PT ALERT TO NAME ONLY WITH FAMILY MEMBER AT BEDSIDE.BREATHING EASY AND NON-LABORED WITH ON AND OFF COUGHING REPORTED.CRACKLES ON AUSCULTATION.TOLERATING ROOMAIR @ 94%MULTIPLE SCRATCH WOUND NOTED AND DISCOURAGED FROM SCRATCHING WITH NO INDICATION OF UNDERSTANDING.BOTH HEELS ELEVATED WITH HEEL PROTECTORS INPLACED. L HEEL WITH OPEN WOUND WITH VERSATEL DRESSING ON PLACED.ON CONTACT [facility] FOR C-DIFF.WILL OBSERVE GOODHANDWASHING TECHNIQUE.FAMILY IN THE ROOM EDUCATED WITH ISOLATION PRECAUTIONS WELL AND VERBALIZED UNDERSTANDING.BP 138/44 MMHG,HR 60.HOB KEPT ELEVATED.WILL CONTINUE TO MONITOR.
--- NOTE | 2019-09-30 04:35 | NUR ---
PT WITH ON AND OFF SLEEPING PATTERN.AWAKE MOST OF THE NIGHT ITCHING.DISCOURAGED FROM SCRATCHING.CREAM APPLIED TO AFFECTED AREA WITH SOME RELIEF.ROBITUSSIN GIVEN X1 FOR COUGHING WITHN RELIEF.DAUGHTER AT BEDSIDE.ON CONTACT [facility] FRO C-DIFF AND MRSA NARES.GOODHANDWASHING TECHNIQUE OBSERVED.ALL NEEDS MET.HEEL PROTECTOR IN PLACED.REPOSITONED.ALL NEEDS ANTICIPATED.WILL CONTINUE TO MONITOR.
[2019-09-30 05:10] VITALS: BP 125/46
--- NOTE | 2019-09-30 05:31 | NUR ---
BS TAKEN THIS AM @ 106 MG/DL.DUE VANCO PO ATB GIVEN WITH ATTEMPTS TO SPIT OUT BUT DAUGHTER AT BEDSIDE HELPING STAFF.CLEANSE L HEEL WITH NSS PAT DRY AND APPLIED OPTIFOAM DRESSING.NEW HEEL PROTECTORS APPLIED.MORNING CARE RENDRED.GOOD PERICARE DONE.PT CONFUSED AND DISORIENTED.REALITY ORIENTATION PROVIDED.WILL CONTINUE TO MONITOR.
--- NOTE | 2019-09-30 07:51 | NUR ---
RECEIVED PATIENT FROM THOMAS SCHREIBER. PATIENT IN BED AT THIS TIME, CONFUSED AT TIMES. DAUGHTER AT BEDSIDE. EXPLAINED TO DAUGHTER PLAN OF CARE FOR TODAY INCLUDING CRUSHED MEDICATIONS AND TOPICAL TREATMENTS. WILL WAIT FOR DR OLIVEIRA TO COME SPEAK WITH PATIENT, FAMILY WAITING FOR APPROVAL OF HOSPITAL BED TO HOME.
[2019-09-30 08:02] VITALS: BP 152/63
--- NOTE | 2019-09-30 10:05 | NUR ---
PATIENT AM MEDICATIONS CRUSHED AND MIXED IN PUDDING. PATIENT REFUSING TO CONSUME MEDICATIONS AND PUDDING, DAUGHTER AT BEDSIDE. WILL CONTINUE TO ATTEMPT PO ADMINISTRATION PATIENT IS CONFUSED. ALSO SPOKE WITH PHARMACIST JAMARCUS ABOUT LIDEX CREAM, SHE STATES PHARMACY IS OUT OF STOCK AND NEED TO RECOMMEND ALTERNATIVE TO DR OLIVEIRA. WILL NOTIFY DR OLIVEIRA WHEN HE ARRIVES. CALL LIGHT IN REACH, PATIENT CLOSE TO NURSES STATION.
--- NOTE | 2019-09-30 13:14 | NUR ---
DR OLIVEIRA AND DR WHEELER IN TO SEE PATIENT. DR OLIVEIRA STATES SHE WOULD BE ABLE TO BE DISCHARGED TODAY, DAUGHTER KEVIN AT BEDSIDE STATES THEY ARE STILL WAITING ON CASE MANAGEMENT FOR HOSPITAL BED TO BE DELIVERED AND ALSO FOR TRANSPORT. DR OLIVEIRA STATES HE WILL FOLLOWUP WITH CASE MANAGEMENT.
[2019-09-30 13:41] VITALS: BP 156/50
--- NOTE | 2019-09-30 14:26 | NUR ---
CALLED AND SPOKE TO AND MADE HIM AWARE THAT PT DISCHARGE HOME PER CASE MANAGEMENT WONT HAPPEN NOT UNTIL WEDNESDAY DUE TO AWAITING HOSPITAL BED AND EQUIPMENT DELIVERY HAPPENING NOT UNTIL WEDNESDAY, SAYS OKAY. REFUGIO GUZMAN ASSIGNED TO THIS PT MADE AWARE OF ABOVE.
[2019-09-30 16:30] VITALS: BP 159/57
--- NOTE | 2019-09-30 17:20 | NUR ---
PATIENT IN BED. FAMILY AT BEDSIDE. PATIENT TOLERATED CRUSHED PO MEDICATIONS AT THIS TIME. REORIENT PATIENT TO SITUATION AND LOCATION. WILL CONTINUE TO MONITOR. CALL LIGHT IN REACH, PATIENT ACROSS FROM NURSES STATION, BED ALARM ON.
[2019-09-30 19:25] VITALS: BP 116/63
--- NOTE | 2019-09-30 19:29 | NUR ---
CALLED DR. OLIVEIRA AND MADE AWARE PT'S BEEN SCRATCHING ALL DAY AND CREAM APPLIED NOT WORKING PER DAUGHTER.HAS NOT SLEEP FOR 2 NIGHTS NOW AND APPEARS VERY AGITATED TOWARDS STAFF AND FAMILY MEMBER.BENADRYL 25 MG IVP ORDERED AND WILL CARRY OUT.
--- NOTE | 2019-09-30 20:23 | NUR ---
DUE MEDS ABOUT TO ADMINISTER.PT VERY AGITATED AT THIS TIME.WILL NOT ALLOW NURSE TO EVEN COME CLOSER TO HER.LISSETTE AT BEDSIDE HELPING CALMING PT DOWN.ABLE TO GET BS AT 149 MG/DL.DAUGHTER OK TO GIVE BENADRYL 25 MG IV AT THIS TIME FOR HER ITCHING.ALLOWED TO CALM DOWN.WILL OFFER ALL MEDS AGAIN LATER.
--- NOTE | 2019-09-30 22:15 | NUR ---
OFFERED MEDICATIONS AGAIN.CRUSHED AND MIXED WITH CHOCOLATE PUDDING.DAUGHTER ASSISTED IN GIVING MEDS.CONTINUE WITH AGITATION TOWARDS STAFF BUT ABLE TO CLEAN DUE TO INCONTINENCE WITH DAUGHTER'S ASSISTANCE.WILL CONTINUE TO MONITOR.
--- NOTE | 2019-10-01 04:34 | NUR ---
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
[2019-10-01 05:56] VITALS: BP 104/50
[2019-10-01 06:35] LABS: CALCIUM 10.3 mg/dL (8.5-10.1); CHLORIDE SERUM 104 mmol/L (98-107); CREATININE SERUM 1.4 mg/dL (0.6-1.0); GLUCOSE SERUM 118 mg/dL (74-106); POTASSIUM SERUM 4.1 mmol/L (3.5-5.1); SODIUM SERUM 140 mmol/L (136-145)
[2019-10-01 06:51] LABS: BASOPHIL % 0.4 % (0-2); PLATELET COUNT 254 x10^3mcL (130-400)
--- NOTE | 2019-10-01 07:36 | NUR ---
RECEIVED PATIENT FROM THOMAS SCHREIBER, CANDIE STATES THAT PATIENT WAS SEVERELY AGITATION LAST NIGHT AND CONTINUED TO ITCH AND SCRATCH HERSELF. WILL CONTINUE TO MONITOR FOR RESTLESSNESS AND ATTEMPT TO FEED PATIENT BREAKFAST AND PO MEDS. WILL WAIT FOR DR OLIVEIRA AND DR WHEELER TO COME SEE PATIENT. CALL LIGHT IN REACH, DAUGHTER AT BEDSIDE.
[2019-10-01 09:00] VITALS: BP 128/51
--- NOTE | 2019-10-01 09:49 | NUR ---
DR WHEELER IN TO EVAL PATIENT, UPDATED TO LAST NIGHTS EVENTS, UPDATED MEDICATIONS.
[2019-10-01 13:44] VITALS: BP 132/62
--- NOTE | 2019-10-01 15:04 | NUR ---
Follow-up Nutrition Assessment- Cade Forrester [id number] Dx: UTI Labs: (10/01) BH, Ca:10.3H, H/H:9.2/28L Meds: Ambilify, Ariceot, Bactriban, Bendaryl, Humulin, Lipitor, Neurontin, Norvasc, Oyster Shell calcium, Phenergan, Robitussin, Tylenol, Vitamin C, Vancomycin, Klonopin Diet: Mechanical soft chopped with NTL PO intake: (09/30) B:25% L:100% D:10% PO intake: 45% x 3 meals Weights: (09/28) 67kg (10/01) 74.9kg, 162# Note: pt was laying on an air mattress, with multiple blankets and equipment on bed Skin: abrasions to left hip, BLE 2/2 to itching and scratching Edema: none Last BM: 09/30 Per RN note 09/30, per CM, discharge will not happen until Wednesday due to awaiting for hospital bed and equipment delivery not happening until Wednesday. Spoke to RN Vasyl, who reported pt refuses and turns head when given food. Pt also c/o stomach ache. RD spoke to pt's daughter, who states pt ate a few bites of her food, however, MD gave approval for to bring outside food. Pt ate pancakes from [employer]. Educated on importance of cutting pancakes due to pt with partial dentures and on a mechanical soft diet. Rec to add Ensure Enlive for extra protein and kcal. Daughter agreeable. Estimated Nutritional Needs based on current body weight: 67kg Energy:1675-2010kcal/day (25-30kcal/kg for maintenance) Protein:67-80g/day (1-1.2g/kg for geriatric maintenance) Fluid: 1675-2010ml/day (1ml/kcal) Nutrition Diagnosis 1. Inadequate oral intake related to poor appetite as evidenced by documented PO:10% (ongoing) Intervention/RDN Recommendation(s): 1. Recommend adding Ensure Enlive TID NTL to current diet order due to pt continues with poor PO intake. Monitor/Evaluate Previous goal: PO intakes to meet at least 75% of estimated needs with tolerance (not met) Goal: PO intakes to meet at least 50% of estimated needs with tolerance. Monitor: PO intake, Labs, GI function, Skin integrity, Weights. F/U in 2-3 days as high (10/03-)
--- NOTE | 2019-10-01 15:05 | NUR ---
1. Recommend adding Ensure Enlive TID NTL to current diet order due to pt continues with poor PO intake.
[2019-10-01 17:29] VITALS: BP 138/52
--- NOTE | 2019-10-01 18:21 | NUR ---
PATIENT IN BED, EATING AND TOLERATING DINNER TRAY. PATIENT ABLE TO CONSUME ENSURE, NO SIGNS OF ASPIRATION. NO SIGNS OF AGITATION, DAUGHTER AT BEDSIDE. WILL ENDORSE TO ONCOMING NURSE. CALL LIGHT IN REACH, PATIENT ACROSS FROM NURSES STATION.
[2019-10-01 19:25] VITALS: BP 146/48
--- NOTE | 2019-10-01 19:25 | NUR ---
RECEIVED PT ASLEEP BUT EASILY AROUSABLE.NO S/S OF PAIN OR DISCOMFORT.BP 146/48 MMHG,HR 78.HEEL PROTECTORS IN PLACED.ON CONTACT ISOALTION FOR MRSA NARES AND C-DIFF STOOL.DAUGHTER AT BEDSIDE.WILL ANTICIPATE ALL NEEDS.WILL CONTINUE TO MONITOR.
--- NOTE | 2019-10-02 04:32 | NUR ---
PT SLEPT WELL ALL NIGHT.NO ASE NOTED FROM PO VANCO ATB.ON CONTACT ISOLATION FOR MRSA TO NARES AND C-DIFF STOOL.GOODHANDWASHIGN TECHNIQUE OBSERVED.PT SOMETIMES WOULD REFUSE TO OPEN HER MOUTH TO TAKE MEDS BUT DAUGHTER AT BEDSIDE ASSISTING.INCONTINENT OF BOWEL AND BLADDER.ALL NEEDS ANTICIPATED AND MET.WILL CONTINUE TO MONITOR.
[2019-10-02 05:56] VITALS: BP 131/63
--- NOTE | 2019-10-02 08:00 | NUR ---
PATIENT RECEIVED WITH DAUGHTER AT BEDSIDE AND VERY ATTENTIVE WITH CARE. PATIENT AHS BEEN ON BEDREST AND IS WITH POOR INTAKE FOR SEVERAL DAYS. SHE HAS HAD HER DAUGHTER FEEDING HER AT BEDSIDE AND ATE TODAY ABOUT 60%. SHE HAS BEEN ON PUREE AND NOW WITH MECHANICAL SOFT WITH THICKENED LIQUIDS. SHE HAS HER MEDICATION CRUSHED IDNICATED ANDX SHE HAS BEEN SPITTING OUT MEDICATION BUT THIS TIME SHE TOOK ALL GIVEN IN APPLESAUSE. PATIENT AHS VITALS AT THIS TIME AT 98.0, 70, 18, 134/51, 101, 952%. NOTD LABS ARE BUN AT 10, CREAINTINES AT 1.4, H AHD OF 8.2/28, AND THE CA AT 10.3. MARY KATE CRUZ NOTED BACTERIA IN THE URINE AND HAS BEEN INCONTINENT. SHE HAS SOME FINE RALES AND NO COUGH AT THIS TIME. PATIENT IS ON ASPIRATION PRECAUTIONS AND REMINDED TO SWALLOW SHE LIKES TO POCKET HER FOOD. HX OF DEMENTIA, STENT PLACEMENTS. ARTHRITIS AND KNEE REPLACEMENT. SHE HAS BEEN ON ROOM AIR AND TOLERATED WELL. THE LAST BLOOD SUGAR WAST AT 124. WILL CONTINUE TO MONITOR.
[2019-10-02 09:28] VITALS: BP 134/51
--- NOTE | 2019-10-02 12:28 | NUR ---
BLOOD SUGAR AT THIS TIME AT 133 AND NO COVERAGE WAS INDICATED.
--- NOTE | 2019-10-02 14:18 | NUR ---
WAS ABLE TO GET THE MEDICATIONS DOWN THE PATEINT IN APPLESAUSE BUT SHE IS THREATENING TO SPIT OUT. PATIENT HAS FAMILY AT BEDSIDE AND ENCOURAGED COMPLIANCE AND STATES SHE WILL BE GOING HOME SOONER IWTH THIS.
--- NOTE | 2019-10-02 16:12 | NUR ---
REQUESTED SERVICE FROM [facility] AND THE PATIENT WAS SEEN. SHE IS TO CONTINUE BETADINE PROTECTIVE COVER WITH OFF LOADING THE HEELS INDICATED .SHE IS TO FOLLOW UP WITH DR GREENWOOD OFFICE. SUPPLIES GIVEN TO THE FAMILY AND PATIENT HAS HER HOSPITAL BED AWAITING AT HOME ORDERED. REDRESSED THE WOUND SITE INDICATED AND REAPPLIED THE OFF LOADING BOOTS.
[2019-10-02 16:13] VITALS: BP 134/51
--- NOTE | 2019-10-02 16:16 | NUR ---
ADVISED DR OLIVEIRA ABOUT THE NEED FOR COUGH MEDICATION AND NUMBER GIVEN FOR [facility]. DR READ CALL IN THE PRESCRIPTION.
[2019-10-02 17:22] VITALS: BP 128/47
--- NOTE | 2019-10-02 17:53 | NUR ---
IV REMOVED AND PATIENT IS READY FOR PACKAGE HANDLER AT THIS TIME. FAMILY AT BEDSIDE.
--- NOTE | 2019-10-02 18:10 | NUR ---
IV REMOVED AND PATIENT HAS HAD THREE UNITS OF REGULAR INSULIN FOR BLOOD SGUAR OF 184.
--- NOTE | 2019-10-02 19:05 | NUR ---
DISCHARGED TO AMBULANCE BY [facility]. PATIENT DENIES ANY DISTRESS AT THIS TIME. IV AND ARMBAND REMOVED INDICATED.
--- NOTE | 2019-10-03 09:01 | NUR ---
WOUND CARE CONSULT NOT DONE, PT. DISCHARGED.
== END 2019-10-02 18:50 | disposition home health service (06) | DRG 371 ==
LOC: ED 18:41 → MU 22:19
PROVIDERS: Emergency Medicine; Internal Medicine; Internal Medicine Gastroenterology; ADMIT Internal Medicine
DX: A04.72 Enterocolitis due to Clostridium difficile, not specified as recurrent (principal); N17.0 Acute kidney failure with tubular necrosis; N39.0 Urinary tract infection, site not specified; I25.10 Atherosclerotic heart disease of native coronary artery without angina pectoris; I12.9 Hypertensive chronic kidney disease with stage 1 through stage 4 chronic kidney disease, or unspecified chronic kidney disease; E11.22 Type 2 diabetes mellitus with diabetic chronic kidney disease; E11.65 Type 2 diabetes mellitus with hyperglycemia; E11.42 Type 2 diabetes mellitus with diabetic polyneuropathy; N18.9 Chronic kidney disease, unspecified; E86.0 Dehydration; L89.622 Pressure ulcer of left heel, stage 2; R62.7 Adult failure to thrive; F41.9 Anxiety disorder, unspecified; R63.0 Anorexia; F03.90 Unspecified dementia, unspecified severity, without behavioral disturbance, psychotic disturbance, mood disturbance, and anxiety; M19.90 Unspecified osteoarthritis, unspecified site; Z74.01 Bed confinement status; Z99.3 Dependence on wheelchair; Z68.20 Body mass index [BMI] 20.0-20.9, adult; Z79.84 Long term (current) use of oral hypoglycemic drugs; Z89.432 Acquired absence of left foot
CPT/HCPCS: 82962; 87046; 87046-59; 92526-GN; 92610-GN; G0378; J0696; J1200; J1956; J3490; J7030; J7040; J7060; J7070; Q0092; Q0163; Q0177